=== PATIENT | male | born 1955 | race Caucasian/White ===

== ENCOUNTER 2016-04-10 17:34 | Emergency (ER) | payer OTHER ==
[~2016-04-10] VITALS: Ht 170.2 cm; Wt 70.0 kg
[~2016-04-10 17:34] MED LIST: CIPR500T4 PO; CLON.1 PO; CYCL5TAB PO; FLAG500T PO; LISI-360 PO; LORTA5 PO; NORV10TA PO; POTA20IN3 PO
[2016-04-10 17:45] VITALS: BP 175/104; PULSE 112; RESP 20; TEMP 98.7; O2SAT 96
[2016-04-10] MEDS ORDERED: LISI10TA3 PO (17:51)
[2016-04-10 18:31] LABS: AUTOMATED NEUTROPHIL # 3.2 TH/MM3 (1.8-7.7); BASOPHIL # 0.1 TH/MM3 (0-0.2); EOSINOPHIL # 0.1 TH/MM3 (0-0.4); EOSINOPHIL % 1.9 % (0.0-4.0); HEMATOCRIT 44.2 % (39.0-51.0); HEMO FLAGS DIFF FINAL; LYMPH % 37.6 % (9.0-44.0); LYMPHOCYTE # 2.5 TH/MM3 (1.0-4.8); MEAN CORPUSCULAR HGB CONC 34.8 % (32.0-36.0); MONO % 10.9 % (0.0-8.0); NEUT % 48.6 % (16.0-70.0); PLATELET COUNT 203 TH/MM3 (150-450); RED CELL DISTRIBUTION WIDTH 14.3 % (11.6-17.2); WHITE BLOOD COUNT 6.5 TH/MM3 (4.0-11.0)
[2016-04-10 18:45] LABS: AMPHETAMINE, URINE NEG (NEG); BARBITURATES, URINE POS (NEG); COCAINE, URINE NEG (NEG)
[2016-04-10 19:00] LABS: ANION GAP 10 MEQ/L (5-15); BICARBONATE 23.5 MEQ/L (21.0-32.0); BLOOD UREA NITROGEN 13 MG/DL (7-18); CHLORIDE 111 MEQ/L (98-107); GLOMERULAR FILTRATION RATE 121 ML/MIN (>89); POTASSIUM 3.3 MEQ/L (3.5-5.1); SODIUM (NA) 144 MEQ/L (136-145)
[2016-04-10 19:04] LABS: ALKALINE PHOSPHATASE 132 U/L (45-117); ALT (GPT) 35 U/L (12-78); AST (GOT) 50 U/L (15-37); TOTAL BILIRUBIN ADULT 0.3 MG/DL (0.2-1.0)
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
[2016-04-10 19:41] VITALS: BP 179/110; PULSE 82; RESP 20; O2SAT 96
[2016-04-10] MEDS ORDERED: cloNIDine HCL 0.2 MG TAB PO ONE (20:00)
[2016-04-10] MEDS ORDERED: LORazepam 2 MG/ML VIAL IV PUSH PRN ×4 (20:15)
[2016-04-10] MEDS ORDERED: LORazepam 2 MG TAB PO PRN (20:15)
[2016-04-10] MEDS ORDERED: LORazepam 1 MG TAB PO PRN (20:15)
[2016-04-10] MEDS ORDERED: FLUMAZENIL 0.5 MG/5 ML VIAL IV PUSH PRN (20:15)
[2016-04-10 22:46] VITALS: BP 143/86; PULSE 80; RESP 18; O2SAT 97
[2016-04-11 02:36] VITALS: BP 192/94; PULSE 83; RESP 18
[2016-04-11 06:25] VITALS: BP 212/108; PULSE 101; RESP 18; O2SAT 97
[2016-04-11] MEDS ORDERED: LISINOPRIL 10 MG TAB PO ONE (06:30)
[2016-04-11] MEDS ORDERED: cloNIDine HCL 0.1 MG TAB PO ONE (06:30)
[2016-04-11 10:37] VITALS: BP 196/102; PULSE 87; RESP 18; O2SAT 98
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
== END 2016-04-11 12:26 | disposition home or self-care (01) ==
LOC: NEPE 17:34 → NEPJ 04-11 12:26
DX: F10.24 Alcohol dependence with alcohol-induced mood disorder (principal); E87.6 Hypokalemia; R00.0 Tachycardia, unspecified; I10 Essential (primary) hypertension; F17.210 Nicotine dependence, cigarettes, uncomplicated
CPT/HCPCS: 80053; 80307; 80320; 85025; 96374; 99284; J2060

== ENCOUNTER 2016-11-20 05:51 | Inpatient (IN) | payer SELFPAY ==
[2016-11-20] VITALS (8 sets, daily range): BP systolic 146–175; BP diastolic 67–98; PULSE 80–90; RESP 16–22; TEMP 95.5–97.2; O2SAT 96–100
[~2016-11-20] VITALS: Ht 177.8 cm; Wt 60.0 kg
[~2016-11-20 05:51] MED LIST changes: -CIPR500T4 PO; -CLON.1 PO; -CYCL5TAB PO; -FLAG500T PO; -LISI-360 PO; +LISI10TA3 PO; -LORTA5 PO; -NORV10TA PO; -POTA20IN3 PO
[2016-11-20] MEDS ORDERED: SODIUM CHLORIDE 0.9% FLUSH 10 ML FLUSH IVF PRN (06:00)
[2016-11-20 06:16] LABS: AUTOMATED NEUTROPHIL # 11.8 TH/MM3 (1.8-7.7); BASOPHIL % 0.1 % (0.0-2.0); EOSINOPHIL % 0.1 % (0.0-4.0); HEMATOCRIT 46.8 % (39.0-51.0); LYMPH % 4.1 % (9.0-44.0); LYMPHOCYTE # 0.6 TH/MM3 (1.0-4.8); MEAN CELL VOLUME 88.7 FL (80.0-100.0); MEAN CORPUSCULAR HEMOGLOBIN 29.3 PG (27.0-34.0); MONO % 8.8 % (0.0-8.0); NEUT % 86.9 % (16.0-70.0); PLATELET COUNT 155 TH/MM3 (150-450); RED BLOOD COUNT 5.27 MIL/MM3 (4.50-5.90); RED CELL DISTRIBUTION WIDTH 17.2 % (11.6-17.2); WHITE BLOOD COUNT 13.6 TH/MM3 (4.0-11.0)
[2016-11-20 06:26] LABS: HEMO FLAGS AUTO DIFF
[2016-11-20 06:31] LABS: ALT (GPT) 23 U/L (12-78); ANION GAP 14 MEQ/L (5-15); AST (GOT) 25 U/L (15-37); BICARBONATE 21.6 MEQ/L (21.0-32.0); BLOOD UREA NITROGEN 70 MG/DL (7-18); CHLORIDE 99 MEQ/L (98-107); GLOMERULAR FILTRATION RATE 7 ML/MIN (>89); SODIUM (NA) 135 MEQ/L (136-145)
[2016-11-20 06:35] LABS: ALKALINE PHOSPHATASE 67 U/L (45-117); CREATINE KINASE 330 U/L (39-308)
--- NOTE | 2016-11-20 06:35 | RADRPT ---
EXAM DATE/TIME: 11/20/2016 06:08 [facility] COMPARISON: CHEST SINGLE AP, May 19, 2013, 4:52. INDICATIONS : Chest pain x 3 hours. MEDICAL HISTORY : Hypertension. SURGICAL HISTORY : Colostomy ENCOUNTER: Initial ACUITY: 1 day PAIN SCORE: 7/10 LOCATION: Bilateral chest FINDINGS: A single view of the chest demonstrates the lungs to be symmetrically aerated without evidence of mas s, infiltrate or effusion. The cardiomediastinal contours are unremarkable. Osseous structures are intact. CONCLUSION: No acute cardiopulmonary process. Ceasar Benton MD on November 20, 2016 at 6:33 Board Certified Radiologist. This report was verified electronically.
[2016-11-20 06:47] LABS: CKMB 5.1 NG/ML (0.5-3.6)
[2016-11-20] MEDS ORDERED: SODIUM CHLOR 0.9% 1000 ML INJ 1,000 ML IV ONE (07:15)
--- NOTE | 2016-11-20 07:40 | PD ---
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 Patient states this happened to him before and was rhabdomyolysis before. He states symptoms have been ongoing for a week. Denies any fever denies any shortness of breath. He does endorse mild chest pain. He also states she's been having very little urine output. [facility] Past Medical History Cardiovascular Problems: Yes Diminished Hearing: No Hepatitis: Yes (HEP C) Hypertension: Yes Past Surgical History Abdominal Surgery: Yes (ostomy) Social History Alcohol Use: Yes Tobacco Use: Yes (1.5 ppd) Substance Use: Yes (CHRONIC ALCOHOL ABUSE) Allergies-Medications (Allergen,Severity, Reaction): Coded Allergies: metoprolol (Unverified Allergy, Intermediate, CHEST PRESSURE, 11/20/16) Reported Meds & Prescriptions Reported Meds & Active Scripts Active Reported Lisinopril 10 Mg Tab 10 Mg PO DAILY Review of Systems Except as stated in HPI: all other systems reviewed are Neg Physical Exam Narrative GENERAL: Well-developed well-nourished, thin, appears dehydrated. SKIN: Focused skin assessment warm/dry. Decreased skin turgor. Dry mucous membranes. HEAD: Atraumatic. Normocephalic. EYES: Pupils equal and round. No scleral icterus. No injection or drainage. ENT: No nasal bleeding or discharge. Mucous membranes pink and dry. NECK: Trachea midline. No JVD. CARDIOVASCULAR: Regular rate and rhythm. No murmur appreciated. RESPIRATORY: No accessory muscle use. Clear to auscultation. Breath sounds equal bilaterally. GASTROINTESTINAL: Abdomen soft, non-tender, nondistended. Hepatic and splenic margins not palpable. MUSCULOSKELETAL: No obvious deformities. No clubbing. No cyanosis. No edema. NEUROLOGICAL: Awake and alert. No obvious cranial nerve deficits. Motor grossly within normal limits. Normal speech. PSYCHIATRIC: Appropriate mood and affect; insight and judgment normal. Data Data Last Documented VS Vital Signs Date Time Temp Pulse Resp B/P (MAP) Pulse Ox O2 Delivery O2 Flow Rate FiO2 11/20/16 08:09 80 16 175/84 (114) 98 Room Air 11/20/16 05:53 97.2 Orders Orders Electrocardiogram (11/20/16 05:55) Ckmb (Isoenzyme) Profile (11/20/16 05:55) Complete Blood Count With Diff (11/20/16 05:55) Comprehensive Metabolic Panel (11/20/16 05:55) Troponin I (11/20/16 05:55) Chest, Single Ap (11/20/16 05:55) Ecg Monitoring (11/20/16 05:55) Iv Access Insert/Monitor (11/20/16 05:55) Oximetry (11/20/16 05:55) Oxygen Administration (11/20/16 05:55) Sodium Chloride 0.9% Flush (Ns Flush) (11/20/16 06:00) CKMB (11/20/16 06:00) CKMB% (11/20/16 06:00) Sodium Chlor 0.9% 1000 Ml Inj (Ns 1000 M (11/20/16 07:15) Diet Renal (11/20/16 Breakfast) Sodium Chlor 0.9% 1000 Ml Inj (Ns 1000 M (11/20/16 08:00) Urinalysis - C+S If Indicated (11/20/16 07:50) Intake + Output 06,14,22 (11/20/16 07:50) Basic Metabolic Panel (Bmp) (11/21/16 06:00) Complete Blood Count With Diff (11/21/16 06:00) Vital Signs (Adult) ROBERT.Q4H (11/20/16 07:50) Sodium, Random Urine (11/20/16 07:50) Consult Nephrology (11/20/16 ) (Hub Use Only)Inp Phy Cons/Ref (11/20/16 08:29) Admit Order (Ed Use Only) (11/20/16 ) Labs Laboratory Tests Test 11/20/16 06:00 White Blood Count 13.6 TH/MM3 Red Blood Count 5.27 MIL/MM3 Hemoglobin 15.4 GM/DL Hematocrit 46.8 % Mean Corpuscular Volume 88.7 FL Mean Corpuscular Hemoglobin 29.3 PG Mean Corpuscular Hemoglobin Concent 33.0 % Red Cell Distribution Width 17.2 % Platelet Count 155 TH/MM3 Mean Platelet Volume 8.2 FL Neutrophils (%) (Auto) 86.9 % Lymphocytes (%) (Auto) 4.1 % Monocytes (%) (Auto) 8.8 % Eosinophils (%) (Auto) 0.1 % Basophils (%) (Auto) 0.1 % Neutrophils # (Auto) 11.8 TH/MM3 Lymphocytes # (Auto) 0.6 TH/MM3 Monocytes # (Auto) 1.2 TH/MM3 Eosinophils # (Auto) 0.0 TH/MM3 Basophils # (Auto) 0.0 TH/MM3 CBC Comment AUTO DIFF Differential Total Cells Counted 100 Neutrophils % (Manual) 70 % Band Neutrophils % 20 % Lymphocytes % 3 % Monocytes % 7 % Neutrophils # (Manual) 12.2 TH/MM3 Differential Comment FINAL DIFF MANUAL Platelet Estimate NORMAL Platelet Morphology Comment NORMAL Blood Urea Nitrogen 70 MG/DL Creatinine 8.11 MG/DL Random Glucose 131 MG/DL Total Protein 7.7 GM/DL Albumin 3.5 GM/DL Calcium Level 7.6 MG/DL Alkaline Phosphatase 67 U/L Aspartate Amino Transf (AST/SGOT) 25 U/L Alanine Aminotransferase (ALT/SGPT) 23 U/L Total Bilirubin 2.0 MG/DL Sodium Level 135 MEQ/L Potassium Level 4.0 MEQ/L Chloride Level 99 MEQ/L Carbon Dioxide Level 21.6 MEQ/L Anion Gap 14 MEQ/L Estimat Glomerular Filtration Rate 7 ML/MIN Total Creatine Kinase 330 U/L Creatine Kinase MB 5.1 NG/ML Creatine Kinase MB % 1.5 % Troponin I 0.05 NG/ML [facility] Medical Decision Making Medical Screen Exam Complete: Yes Emergency Medical Condition: Yes Differential Diagnosis Acute kidney injury, electrolyte abnormality, rhabdomyolysis. Narrative Course Patient roomed in the emergency department, appears significantly dehydrated. 2 L normal saline were ordered for him. Patient's labs do show mild elevation of CPK but a significant elevation in creatinine to 8.0. Patient's EKG does have some ST segment depression in V4 through V6. Troponin is 0.05. Chest pain is fairly atypical. Potassium is 4. Consideration was given for the possibility the patient has been suffering from rhabdomyolysis all week now he has kidney failure from it. The patient was discussed with Dr. Calvo for admission is agreeable. Diagnosis Primary Impression: Acute kidney failure Admitting Information Admitting Physician Requests: Admit Condition: Stable Nilay Walter MD Nov 20, 2016 07:40
[2016-11-20 07:50] LABS: BANDS 20 % (0-6); NEUTROPHIL # MANUAL DIFF 12.2 TH/MM3 (1.8-7.7); PLATELET ESTIMATE SMEAR NORMAL (NORMAL); PLATELET MORPHOLOGY NORMAL (NORMAL); POLYS (SEG NEUTROPHILS) 70 % (16-70); SCAN/DIFF FINAL DIFF MANUAL; WBC DIFF SAMPLE 100
--- NOTE | 2016-11-20 09:05 | EKG ---
Date Performed: 11/20/2016 Time Performed: 06:23:01 PTAGE: 61 years EKG: Sinus rhythm WITH OCCASIONAL SUPRAVENTRICULAR PREMATURE COMPLEXES LEFT VENTRICULAR HYPERTROPHY AND ST-T CHANGE AB NORMAL ECG NO PREVIOUS TRACING DOCTOR: Karsten Ardon Interpretating Date/Time 11/20/2016 09:04:04
[2016-11-20] MEDS: SODIUM CHLOR 0.9% 1000 ML INJ 1,000 ML IV SCH ×3 (09:29→21:13)
--- NOTE | 2016-11-20 10:05 | HHI.HP ---
HPI Service [facility] Hospitalists Primary Care Physician No Primary Care Physician Admission Diagnosis Acute Kidney Failure Diagnoses: Chief Complaint: Nausea vomiting Severe abdominal pain Bilateral lower extremity cramping and pain Decreased urinary output Dizziness and lightheadedness Travel History International Travel<30 Days: No Contact w/Intl Traveler <30 Da: No Traveled to Known Affected Are: No Sepsis Criteria SIRS Criteria (2 or more): WBC > 73656, < 4000 or > 10% bands History of Present Illness Written by Shanon Barrett PA-C acting as scribe for Dr. Calvo on 11/20/16 at 09:55. This is a 61-year-old male with a past medical history significant for hypertension, hep C untreated, hemochromatosis, history of perforated colon status post colostomy placement, history of previous rhabdomyolysis with suspected kidney failure, recent admission for symptomatic gallstones 3-6 months ago, tobaccoism and history of snorting crystal meth who presents to [facility] ED with complaints of three-day history of decreased urinary output, bilateral lower extremity muscle spasms, nausea, poor oral intake, lightheadedness and dizziness. 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 Patient denies any complaints of dysuria but states he has had a slow stream and decreased urinary output urinating small amounts only once per day. States he's not been eating well for the past 3-4 days. He endorses an episode of vomiting this morning. He reports diffuse abdominal pain some of which is chronic around the right upper quadrant with severe pain in the left lower quadrant around the stoma for the past 2 days. Patient denies any fever at home. Patient denies any diarrhea in the colostomy bag but states that for the past 6-8 months he's had intermittent episodes of passing pink/reddish tissue rectally which has become daily for the past 3 days the last episode being this morning. Additionally patient states that he was recently treated for gallstones and was told he needed a cholecystectomy but has not been able to follow-up to to financial issues/lack of insurance. Patient denies any recent colonoscopy. Patient states that his previous perforation was due to "parasites ". Additionally, patient states that whenever he drinks water he feels like his belly fills up with fluid. Patient admits to inhaling crystal meth several times per year and states his last use was a few weeks ago. Currently patient states he feels "terrible" and is complaining of severe abdominal pain as well as muscle spasms and pain. In the ED, patient is slightly elevated white count of 13.6. He is afebrile. Chemistry panel is most remarkable for an elevated creatinine level 8.11. He is also noted to have mildly elevated CK of 330 and CK-MB of 5.1. Initial troponin 0.05. There has not been any imaging of the abdomen. Chest x-ray shows no acute cardiopulmonary process. Patient reports his only home medication is lisinopril 10 mg which he takes every day including this morning. Patient is refusing Canela catheter placement at this time. Review of Systems Except as stated in HPI: all other systems reviewed are Neg Past Family Social History Past Medical History Hypertension Hep C untreated Hemochromatosis History of pneumoperitoneum, sigmoid resection, diverticulitis with perforated viscus status post colostomy placement 2013 History of previous rhabdomyolysis with suspected kidney failure 5 yrs ago Recent admission for symptomatic gallstones 3-6 months ago Hypospadias with urethral stricture Tobaccoism Polysubstance abuse Past Surgical History Status post sigmoid resection with colostomy ERCP for symptomatic gallstones 3-6 months ago at [facility] Reported Medications Lisinopril 10 Mg Tab 10 Mg PO DAILY Allergies: Coded Allergies: metoprolol (Unverified Allergy, Intermediate, CHEST PRESSURE, 11/20/16) Active Ordered Medications Current Medications Medications (Trade) Dose Ordered Sig/Ercia Route Start Time Stop Time Status Last Admin (NS Flush) 2 ml UNSCH PRN IVF 11/20/16 06:00 Sodium Chloride 1,000 ml @ 125 mls/hr Q8H IV 11/20/16 08:00 11/20/16 09:29 Family History Mother, 3 months ago of lung cancer Father, 20 years ago, cancer Social History Patient reports tobacco use of "at least" of 1 1/2 ppd. Patient ports alcohol consumption every 3-4 days. His last alcoholic beverages 3-4 days ago. However review of the previous medical record reveals a long history of alcohol abuse. Patient reports substance abuse of crystal meth which he inhales several times per year, his last use was a few weeks ago. Patient is and lives with his . 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 Physical Exam Vital Signs Vital Signs Date Time Temp Pulse Resp B/P (MAP) Pulse Ox O2 Delivery O2 Flow Rate FiO2 11/20/16 08:09 80 16 175/84 (114) 98 Room Air 11/20/16 06:02 96 Room Air 11/20/16 06:02 96 Room Air 11/20/16 05:53 97.2 82 16 154/90 (111) 100 Physical Exam GENERAL: This is a well-nourished, well-developed patient, in no apparent distress. Awake and alert. is at the bedside. SKIN: Warm and dry. Multiple superficial abrasions noted on both hands. HEAD: Atraumatic. Normocephalic. No temporal or scalp tenderness. EYES: Pupils equal round and reactive. Extraocular motions intact. Bilateral sclera mildly icteric. No injection or drainage. ENT: Nose without bleeding, purulent drainage. Poor dentition. Throat without erythema, tonsillar hypertrophy or exudate. Dry mucous membranes. Airway patent. NECK: Trachea midline. No lymphadenopathy. Supple, nontender, no meningeal signs. CARDIOVASCULAR: Regular rate and rhythm without murmurs, gallops, or rubs. RESPIRATORY: Clear to auscultation. Breath sounds equal bilaterally. No wheezes , rales, or rhonchi. GASTROINTESTINAL: Abdomen soft, nondistended. (+) Diffuse tenderness to palpation worse in the left lower quadrant. Colostomy noted in the left lower quadrant. No hepato-splenomegaly, or palpable masses. No guarding. MUSCULOSKELETAL: Extremities without clubbing, cyanosis, or edema. No joint tenderness, effusion, or edema noted. No calf tenderness. NEUROLOGICAL: Awake and alert. Able to move all extremities spontaneously. Normal speech. Laboratory Laboratory Tests Test 11/20/16 06:00 White Blood Count 13.6 Red Blood Count 5.27 Hemoglobin 15.4 Hematocrit 46.8 Mean Corpuscular Volume 88.7 Mean Corpuscular Hemoglobin 29.3 Mean Corpuscular Hemoglobin Concent 33.0 Red Cell Distribution Width 17.2 Platelet Count 155 Mean Platelet Volume 8.2 Neutrophils (%) (Auto) 86.9 Lymphocytes (%) (Auto) 4.1 Monocytes (%) (Auto) 8.8 Eosinophils (%) (Auto) 0.1 Basophils (%) (Auto) 0.1 Neutrophils # (Auto) 11.8 Lymphocytes # (Auto) 0.6 Monocytes # (Auto) 1.2 Eosinophils # (Auto) 0.0 Basophils # (Auto) 0.0 CBC Comment AUTO DIFF Differential Total Cells Counted 100 Neutrophils % (Manual) 70 Band Neutrophils % 20 Lymphocytes % 3 Monocytes % 7 Neutrophils # (Manual) 12.2 Differential Comment FINAL DIFF MANUAL Platelet Estimate NORMAL Platelet Morphology Comment NORMAL Blood Urea Nitrogen 70 Creatinine 8.11 Random Glucose 131 Total Protein 7.7 Albumin 3.5 Calcium Level 7.6 Alkaline Phosphatase 67 Aspartate Amino Transf (AST/SGOT) 25 Alanine Aminotransferase (ALT/SGPT) 23 Total Bilirubin 2.0 Sodium Level 135 Potassium Level 4.0 Chloride Level 99 Carbon Dioxide Level 21.6 Anion Gap 14 Estimat Glomerular Filtration Rate 7 Total Creatine Kinase 330 Creatine Kinase MB 5.1 Creatine Kinase MB % 1.5 Troponin I 0.05 Result Diagram: 11/20/16 0600 11/20/16 0600 Imaging Last Impressions Chest X-Ray 11/20/16 0555 Signed Impressions: Service Date/Time: Sunday, November 20, 2016 06:08 - CONCLUSION: No acute cardiopulmonary process. MD Reynaldo Teixeira VTE Risk Assessment Reynaldo VTE Risk Assessment: Mod/High Risk (score >= 2) VTE Pharm Contraindication: High risk for bleeding Caprini Risk Assessment Model Point Value = 1 Point Value = 2 Point Value = 3 Point Value = 5 Age 41-60 Minor surgery BMI > 25 kg/m2 Swollen legs Varicose veins or History of unexplained or recurrent spontaneous Oral contraceptives or hormone replacement Sepsis (< 1 month) Serious lung disease, including pneumonia (< 1 month) Abnormal pulmonary function Acute myocardial infarction Congestive heart failure (< 1 month) History of inflammatory bowel disease Medical patient at bed rest Age 61-74 Arthroscopic surgery Major open surgery (> 45 min) Laparoscopic surgery (> 45 min) Malignancy Confined to bed (> 72 hours) Immobilizing plaster cast Central venous access Age >= 75 History of VTE Family history of VTE Factor V Leiden Prothrombin [id number] Lupus anticoagulant Anticardiolipin antibodies Elevated serum homocysteine Heparin-induced thrombocytopenia Other congenital or acquired thrombophilia Stroke (< 1 month) Elective arthroplasty Hip, pelvis, or leg fracture Acute spinal cord injury (< 1 month) Prophylaxis Regimen Total Risk Factor Score Risk Level Prophylaxis Regimen 0-1 Low Early ambulation 2 Moderate Order ONE of the following: *Sequential Compression Device (SCD) *Heparin 5000 units SQ BID 3-4 Higher Order ONE of the following medications: *Heparin 5000 units SQ TID *Enoxaparin/Lovenox 40 mg SQ daily (WT < 150 kg, CrCl > 30 mL/min) *Enoxaparin/Lovenox 30 mg SQ daily (WT < 150 kg, CrCl > 10-29 mL/min) *Enoxaparin/Lovenox 30 mg SQ BID (WT < 150 kg, CrCl > 30 mL/min) AND/OR *Sequential Compression Device (SCD) 5 or more Highest Order ONE of the following medications: *Heparin 5000 units SQ TID (Preferred with Epidurals) *Enoxaparin/Lovenox 40 mg SQ daily (WT < 150 kg, CrCl > 30 mL/min) *Enoxaparin/Lovenox 30 mg SQ daily (WT < 150 kg, CrCl > 10-29 mL/min) *Enoxaparin/Lovenox 30 mg SQ BID (WT < 150 kg, CrCl > 30 mL/min) AND *Sequential Compression Device (SCD) Assessment and Plan Assessment and Plan 61-year-old male with a past medical history significant for hypertension, hep C untreated, hemochromatosis, history of perforated colon status post colostomy placement, history of previous rhabdomyolysis with suspected kidney failure, recent admission for symptomatic gallstones 3-4 months ago, tobaccoism and history of snorting crystal meth who presents to [facility] ED with complaints of three-day history of decreased urinary output, bilateral lower extremity muscle spasms, nausea, poor oral intake, lightheadedness and dizziness. Acute renal failure - Secondary to dehydration and continued ACEI use - creatinine 8.11 - Nephrology consulted - Aggressive IV fluid hydration - avoid nephrotoxic agents - Hold patient's home lisinopril - Patient is refusing Canela placement. Monitor I's and O's. - Renal ultrasound ordered - Obtain UA with reflex culture - Urine sodium - Renal diet - Monitor creatinine closely ?Rhabdomyolysis - Secondary to severe dehydration - Mildly elevated CK. Continue to monitor. - Aggressive IV fluid hydration Leukocytosis - Likely stress/reactive - Chest x-ray personally reviewed and is unremarkable - UA ordered - Patient is afebrile. - Monitor CBC Severe abdominal pain History of perforation status post colostomy Questionable GI bleed - H&H stable. Continue to monitor - Hold off on any anticoagulation at this time - Consult GI - Pain management - IV Zofran as needed Hypertension - hold ACEI for now - Monitor BP and initiate treatment as indicated Hep C, untreated - Standard precautions - LFTs within normal limits - GI consulted as stated above Tobaccoism Polysubstance abuse History of respiratory failure requiring intubation - Patient admitted in April of this year under [facility] act for alcohol abuse /intoxication - Discussed cessation - Monitor respiratory status DVT prophylaxis - Hold chemoprophylaxis at this time due to concern for possible GI bleed - Bilateral SCD/CARL hose This note was transcribed by scribe [Ms.Shannon Barrett]. I, Dr. Anette Calvo personally performed the history, physical exam, and medical decision making; and confirmed the accuracy of the information in the transcribed note. Authenticated by Dr. Tali Calvo on 11/20/16 at 10:42. Discussed Condition With ED physician, patient and Physician Certification 2 Midnight Certification Type: Admission for Inpatient Services Order for Inpatient Services The services are ordered in accordance with Medicare regulations or non- Medicare payer requirements, as applicable. In the case of services not specified as inpatient-only, they are appropriately provided as inpatient services in accordance with the 2-midnight benchmark. Estimated LOS (days): 2 2 days is the estimated time the patient will need to remain in the hospital, assuming treatment plan goals are met and no additional complications. Post-Hospital Plan: Not yet determined Shanon Barrett Nov 20, 2016 10:05 Anette Calvo MD Nov 20, 2016 10:43
[2016-11-20] MEDS ORDERED: ONDANSETRON HCL 4 MG/2 ML VIAL IV PUSH PRN (10:15)
[2016-11-20] MEDS ORDERED: ACETAMINOPHEN 325 MG TAB PO PRN (10:15)
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
--- NOTE | 2016-11-20 11:44 | RADRPT ---
EXAM DATE/TIME: 11/20/2016 10:47 [place] COMPARISON: No previous studies available for comparison. INDICATIONS : Increased BUN and creatnine. MEDICAL HISTORY : Hepatitis C. Hypertension. ETOH abuse. SURGICAL HISTORY : ENCOUNTER: Initial ACUITY: 1 day PAIN SCORE: 7/10 LOCATION: Bilateral flank MEASUREMENTS: RIGHT KIDNEY: 10.8 x 4.8 x 5.0 cm LEFT KIDNEY: 10.8 x 5.6 x 5.8 cm FINDINGS: The kidneys appear echogenic. No focal mass or hydronephrosis is seen. The bladder is unremarkable. CONCLUSION: Echogenic kidneys consistent with medical renal disease. The kidneys are normal in size without hydro nephrosis. Jv Moreno MD on November 20, 2016 at 11:41 Board Certified Radiologist. This report was verified electronically.
--- NOTE | 2016-11-20 16:30 | MB ---
cc: LISBETH DUMONT M.D., MOHAMMADREZA MD DATE OF CONSULTATION November 20, [address] Calvo. REASON FOR CONSULTATION Rectal bleeding and bleeding through the colostomy. HISTORY OF PRESENT ILLNESS Mr. 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 He also mentions bleeding through his rectum as well as through his colostomy and this has prompted GI consultation. He says for 2 days he has been having some dark-colored material with some red blood coming out of his rectum. He says this alarmed him the most. He also has been having some red blood through his colostomy which he says is an off and on thing for him. He had a colostomy done about 3.5-4 years ago he states and he says this was done for parasites. He said he was told that the colostomy will be reversed but it was never done due to financial issues. Currently, he is having no active bleeding. REVIEW OF SYSTEMS Unremarkable. PAST MEDICAL HISTORY Hypertension, hepatitis C, hemochromatosis, sigmoid resection for diverticulitis and colostomy in 2013. Previous history of rhabdomyolysis. History of gallstones. Tobaccoism, polysubstance abuse. PAST SURGICAL HISTORY Sigmoid resection with colostomy. ERCP for gallstone removal about 6 months ago. CURRENT MEDICATIONS 1. Lisinopril. ALLERGIES METOPROLOL. FAMILY HISTORY Lung cancer. SOCIAL HISTORY The patient is a smoker, also drinks alcohol, polysubstance abuser reported as well. PHYSICAL EXAMINATION GENERAL: Physical examination reveals a well-nourished man in no apparent distress. VITAL SIGNS: Stable. HEAD AND NECK EXAMINATION: Icteric sclerae. CHEST: Bilateral air entry with rales. ABDOMEN: Abdomen is soft, tenderness to palpation, has a colostomy in the left lower quadrant. 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 LABORATORY DATA Reveal white cell count of 13.6, hemoglobin is 15, creatinine 8.1. Total bilirubin 2, AST 25, ALT 23. IMPRESSION Rectal bleeding as well as bleeding through the colostomy. RECOMMENDATIONS Sigmoidoscopy, colonoscopy planned for Tuesday. Obviously, kidney functions need to improve before the bowel prep. Hydrocortisone enemas would help with the rectal bleeding. Continue to monitor labs. We will follow with you. Thank you for this referral. MD DARYA Thomason /2:15 PM /4:17 PM
[2016-11-20] MEDS ORDERED: hydrALAZINE HCL 25 MG TAB PO PRN (17:00)
[2016-11-20] MEDS: amLODIPine BESYLATE 5 MG TAB PO SCH (17:54)
[2016-11-20] MEDS: HYDROCORTISONE ENEMA 100 MG/60 ML BTL RECTAL SCH (21:00)
[2016-11-21 00:42] VITALS: BP 148/70; PULSE 91; RESP 18; TEMP 96.3; O2SAT 97
[2016-11-21] MEDS ORDERED: MORPHINE SULFATE 4 MG/ML INJ IV PUSH ONE ×2 (06:15→13:00)
[2016-11-21] MEDS: SODIUM CHLOR 0.9% 1000 ML INJ 1,000 ML IV SCH (06:17)
[2016-11-21 07:23] LABS: AUTOMATED NEUTROPHIL # 5.2 TH/MM3 (1.8-7.7); BASOPHIL % 0.4 % (0.0-2.0); EOSINOPHIL # 0.1 TH/MM3 (0-0.4); EOSINOPHIL % 1.1 % (0.0-4.0); HEMATOCRIT 39.4 % (39.0-51.0); HEMO FLAGS DIFF FINAL; LYMPH % 13.1 % (9.0-44.0); LYMPHOCYTE # 0.9 TH/MM3 (1.0-4.8); MEAN CELL VOLUME 88.4 FL (80.0-100.0); MEAN CORPUSCULAR HEMOGLOBIN 29.7 PG (27.0-34.0); MEAN CORPUSCULAR HGB CONC 33.6 % (32.0-36.0); MONO % 10.4 % (0.0-8.0); PLATELET COUNT 101 TH/MM3 (150-450); RED BLOOD COUNT 4.46 MIL/MM3 (4.50-5.90); WHITE BLOOD COUNT 6.9 TH/MM3 (4.0-11.0)
[2016-11-21 08:00] VITALS: BP 185/84; PULSE 66; RESP 16; TEMP 96.7; O2SAT 98
[2016-11-21 08:10] LABS: BICARBONATE 22.6 MEQ/L (21.0-32.0); POTASSIUM 3.8 MEQ/L (3.5-5.1)
[2016-11-21] MEDS: amLODIPine BESYLATE 5 MG TAB PO SCH (08:57)
[2016-11-21] MEDS ORDERED: INFLUENZA VIRUS VACCINE (QUADRIVALENT) 0.5 ML SYR IM ONE (10:00)
--- NOTE | 2016-11-21 10:43 | HHI.PR ---
Subjective Remarks in no acute distress. however complaining of abdominal pain. urine output is improving. d/w the RN. Objective Vitals Vital Signs Date Time Temp Pulse Resp B/P (MAP) Pulse Ox O2 Delivery O2 Flow Rate FiO2 11/21/16 08:00 96.7 66 16 185/84 (117) 98 11/21/16 03:33 20 11/21/16 00:42 96.3 91 18 148/70 (96) 97 11/20/16 19:44 96.5 84 22 149/67 (94) 96 11/20/16 16:00 95.9 81 18 162/80 (107) 99 11/20/16 13:00 95.5 90 19 152/81 (104) 99 11/20/16 12:46 79 18 146/79 (101) 97 11/20/16 10:55 86 18 154/98 (116) 99 Room Air I/O 11/20/16 11/20/16 11/20/16 11/21/16 11/21/16 11/21/16 07:00 15:00 23:00 07:00 15:00 23:00 Intake Total 1000 ml 240 ml Output Total 200 ml 775 ml Balance 1000 ml 40 ml -775 ml Intake Oral 240 ml IV Total 1000 ml Output Urine Total 200 ml 775 ml # Bowel Movements 0 Result Diagram: 11/21/16 0610 11/21/16 0610 Imaging Last Impressions Chest X-Ray 11/20/16 0555 Signed Impressions: Service Date/Time: Sunday, November 20, 2016 06:08 - CONCLUSION: No acute cardiopulmonary process. Ceasar Benton MD Renal Ultrasound 11/20/16 0000 Signed Impressions: Service Date/Time: Sunday, November 20, 2016 10:47 - CONCLUSION: Echogenic kidneys consistent with medical renal disease. The kidneys are normal in size without hydronephrosis. Jv Moreno MD Objective Remarks GENERAL: This is a well-nourished, well-developed patient, in no apparent distress. CARDIOVASCULAR: Regular rate and regular rhythm without murmurs, gallops, or rubs. RESPIRATORY: Clear to auscultation. Breath sounds equal bilaterally. No wheezes , rales, or rhonchi. GASTROINTESTINAL: Abdomen soft, with generalized tenderness, nondistended. Normal, active bowel sounds MUSCULOSKELETAL: Extremities without clubbing, cyanosis, or edema. NEURO: Alert & Oriented x4 to person, place, time, situation. Moves all ext x4 Medications and IVs Current Medications Sodium Chloride (NS Flush) 2 ml UNSCH PRN IVF FLUSH AFTER USING IV ACCESS; Start 11/20/16 at 06:00 Sodium Chloride 1,000 ml @ 999 mls/hr BOLUS ONCE IV Last administered on 11/20 07:41; Start 11/20/16 at 07:15; Stop 11/20/16 at 08:15; Status DC Sodium Chloride 1,000 ml @ 150 mls/hr Q6H40M IV Last administered on 06:17; Start 11/20/16 at 08:00; Stop 11/21/16 at 09:08; Status DC Ondansetron HCl (Zofran Inj) 4 mg Q8HR PRN IV PUSH NAUSEA Last administered on 11/20/16 10:54; Start 11/20/16 at 10:15 Acetaminophen (Tylenol) 650 mg Q6HR PRN PO PAIN 1-5 Last administered on 13:19; Start 11/20/16 at 10:15 Oxycodone HCl (Roxicodone) 5 mg Q6H PRN PO PAIN 6-10 Last administered on 01:11; Start 11/20/16 at 10:15 Influenza Virus Vaccine (Flu (Quadrivalent) Vaccine Inj) 0.5 ml ONCE ONCE IM ; Start 11/21/16 at 10:00; Stop 11/21/16 at 10:01; Status DC Hydrocortisone (Cortenema) 100 mg HS RECTAL ; Start 11/20/16 at 21:00 Amlodipine Besylate (Norvasc) 5 mg DAILY PO Last administered on 11/21/16 08: 57; Start 11/20/16 at 17:00 Hydralazine HCl (Apresoline) 25 mg Q8H PRN PO SBP > 180 DBP > 90; Start at 17:00 Morphine Sulfate (Morphine Inj) 2 mg ONCE ONCE IV PUSH Last administered on 06:16; Start 11/21/16 at 06:15; Stop 11/21/16 at 06:16; Status DC Sodium Chloride 1,000 ml @ 65 mls/hr [id number] IV ; Start 11/21/16 at 09:15 A/P Assessment and Plan A/P Acute kidney injury; improved with IV hydration. - Secondary to dehydration and continued ACEI use -nephrology consult appreciated. -kidney sonogram with medical renal disease and no hydronephrosis -continue with IV fluid and to monitor the renal function ?Rhabdomyolysis - Secondary to severe dehydration - Mildly elevated CK. Continue to monitor. - continue IV fluid hydration Leukocytosis-resolved - Likely stress/reactive - Patient is afebrile. - Monitor CBC Severe abdominal pain History of perforation status post colostomy Questionable GI bleed - H&H stable. Continue to monitor - Hold off on any anticoagulation at this time - GI evaluation appreciated and plan for colonoscopy on Tuesday. - Pain management - IV Zofran as needed Hypertension - hold ACEI for now -added norvasc- - Monitor BP and initiate treatment as indicated Hep C, untreated - Standard precautions - LFTs within normal limits - GI consulted as stated above Tobaccoism/ Polysubstance abuse; start on nicotine patch DVT prophylaxis - Hold chemoprophylaxis at this time due to concern for possible GI bleed - Bilateral SCD/CARL Anette Loco MD Nov 21, 2016 10:43
[2016-11-21] MEDS: REMOVE OLD PATCH T-DERMAL SCH (11:00)
[2016-11-21] MEDS: NICOTINE 21 MG/24 HR PATCH T-DERMAL SCH (11:12)
[2016-11-21] MEDS: HYDROCORTISONE ENEMA 100 MG/60 ML BTL RECTAL SCH (11:12)
[2016-11-21 12:00] VITALS: BP 163/81; PULSE 72; RESP 14; TEMP 97; O2SAT 97
--- NOTE | 2016-11-21 12:09 | HHI.NPPN ---
Subjective Interval History Renal function has improved. He has excellent urine output. Feels stronger. Review of Systems General Constitutional: Fatigue Objective Data Data Vital Signs Date Time Temp Pulse Resp B/P (MAP) Pulse Ox O2 Delivery O2 Flow Rate FiO2 11/21/16 08:00 96.7 66 16 185/84 (117) 98 11/21/16 03:33 20 11/21/16 00:42 96.3 91 18 148/70 (96) 97 11/20/16 19:44 96.5 84 22 149/67 (94) 96 11/20/16 16:00 95.9 81 18 162/80 (107) 99 11/20/16 13:00 95.5 90 19 152/81 (104) 99 11/20/16 12:46 79 18 146/79 (101) 97 -: 11/21/16 0610 11/21/16 0610 Physical Exam General Appearance: No Acute Distress, Comfortable Eyes Eye Exam: Pupils Equal, Pupils Reactive Throat Throat Exam: Oral Mucosa [place] & Moist Neck Neck Exam: Neck Supple Pulmonary Resp Exam: Rhonchi Cardiology CV Exam: Regular, Normal Sinus Rhythm Gastrointestinal/Abdomen GI Exam: Soft, Non-Tender GI Remarks ostomy in place. Extremeties Extremities Exam: No Edema Neurologic Neuro Exam: Alert, Awake, Oriented, Speech Clear, Moving All Extremities Assessment/Plan Problem List: (1) Acute kidney failure ICD Codes: N17.9 - Acute kidney failure, unspecified Status: Acute Plan: Renal function has improved with hydration. Reduce IVF, encourage oral intake, taper off fluids. CPK is only mildly elevated, may not have rhabdomyolysis. Renal US is unremarkable. Avoid nephrotoxic agents. (2) Tobacco abuse ICD Codes: Z72.0 - Tobacco use Plan: Cessation was advised. Plan I will sign off at this time. Thanks. Luke Figueroa MD Nov 21, 2016 12:09
--- NOTE | 2016-11-21 14:44 | HHI.GIFU ---
Subjective Remarks Lying in bed. Patient reports diffuse abdominal pain. (Sarita Del Rio) Objective Vitals I&O Vital Signs Date Time Temp Pulse Resp B/P (MAP) Pulse Ox O2 Delivery O2 Flow Rate FiO2 11/21/16 08:00 96.7 66 16 185/84 (117) 98 11/21/16 03:33 20 11/21/16 00:42 96.3 91 18 148/70 (96) 97 11/20/16 19:44 96.5 84 22 149/67 (94) 96 11/20/16 16:00 95.9 81 18 162/80 (107) 99 I/O 11/20/16 11/20/16 11/20/16 11/21/16 11/21/16 11/21/16 07:00 15:00 23:00 07:00 15:00 23:00 Intake Total 1000 ml 240 ml Output Total 200 ml 775 ml Balance 1000 ml 40 ml -775 ml Intake Oral 240 ml IV Total 1000 ml Output Urine Total 200 ml 775 ml # Bowel Movements 0 Laboratory Laboratory Tests Test 11/21/16 06:10 White Blood Count 6.9 Red Blood Count 4.46 Hemoglobin 13.3 Hematocrit 39.4 Mean Corpuscular Volume 88.4 Mean Corpuscular Hemoglobin 29.7 Mean Corpuscular Hemoglobin Concent 33.6 Red Cell Distribution Width 17.0 Platelet Count 101 Mean Platelet Volume 8.9 Neutrophils (%) (Auto) 75.0 Lymphocytes (%) (Auto) 13.1 Monocytes (%) (Auto) 10.4 Eosinophils (%) (Auto) 1.1 Basophils (%) (Auto) 0.4 Neutrophils # (Auto) 5.2 Lymphocytes # (Auto) 0.9 Monocytes # (Auto) 0.7 Eosinophils # (Auto) 0.1 Basophils # (Auto) 0.0 CBC Comment DIFF FINAL Differential Comment Blood Urea Nitrogen 63 Creatinine 1.77 Random Glucose 91 Calcium Level 7.9 Sodium Level 139 Potassium Level 3.8 Chloride Level 108 Carbon Dioxide Level 22.6 Anion Gap 8 Estimat Glomerular Filtration Rate 39 Total Creatine Kinase 92 Imaging Last Impressions Chest X-Ray 11/20/16 0555 Signed Impressions: Service Date/Time: Sunday, November 20, 2016 06:08 - CONCLUSION: No acute cardiopulmonary process. Ceasar Benton MD Renal Ultrasound 9/16/17 0000 Signed Impressions: Service Date/Time: Sunday, November 20, 2016 10:47 - CONCLUSION: Echogenic kidneys consistent with medical renal disease. The kidneys are normal in size without hydronephrosis. Jv Moreno MD Physical Exam HEENT: Normocephalic; atraumatic; no jaundice. NECK: Neck is supple CHEST: CTA CARDIAC: RRR with no murmur gallop or rubs. ABDOMEN: Soft, nondistended, diffuse abdominal TTP; bowel sounds are present. EXTREMITIES: No clubbing, cyanosis, or edema. SKIN: Normal; no rash; no jaundice. SCREENING TECHNICIAN: No focal deficits; alert and oriented x 3 (Sarita Del Rio) Assessment and Plan Plan ASSESSMENT: Rectal bleeding and bleeding through colostomy, HH stable. Having diffuse abdominal tenderness. Sigmoidoscopy, colonoscopy planned once kidney function improves for bowel prep. WBC 6.9. Afebrile. Acute kidney injury, per attending. Improving. Nephrology following who has noted improved renal function and has signed off on patient. Cr 11/20 8.11, 11/21 1.77. GFR 11/20 7, 11/21 39. PLAN: - Sigmoidoscopy, colonoscopy Tuesday - Obtain consents - Clear liquid diet Tuesday - NPO after MN Tuesday - Bowel prep Tuesday - Monitor HH, transfuse as necessary - Notify GI of active bleeding - Hydrocortisone enemas for rectal bleeding - Supportive care - Further recommendations to follow based on results of above. Patient seen and examined by Dr. Staley and myself and this note is written on his behalf. (Sarita Del Rio) Physician Comments Seen and examined with SUPERVISOR TELEPHONE INFORMATION> sigmoidoscopy through the rectum and colonoscopy planned for tomorrow. (Masood Staley MD) Sarita Del Rio Nov 21, 2016 14:44 Masood Staley MD Nov 21, 2016 15:08
[2016-11-21 16:00] VITALS: BP 159/79; PULSE 82; RESP 16; TEMP 95.7; O2SAT 95
[2016-11-21] MEDS ORDERED: PEG (High)/E-LYTE SOLN 4000 ML BTL PO ONE (16:00)
[2016-11-21] MEDS: HYDROmorphone HCL PF 1 MG/ML VIAL IV PRN ×3 (16:05→21:56)
[2016-11-21] MEDS ORDERED: DIATRIZOATE MEGLUM/DIATRIZOATE SOD 9 ML CUP PO ONE (16:11)
[2016-11-21 19:48] VITALS: BP 154/75; PULSE 53; RESP 20; TEMP 96.3; O2SAT 98
[2016-11-21] MEDS: SODIUM CHLOR 0.45% 1000 ML INJ 1,000 ML IV SCH (19:50)
--- NOTE | 2016-11-21 20:23 | RADRPT ---
EXAM DATE/TIME: 11/21/2016 20:02 [facility] COMPARISON: CT ABDOMEN & PELVIS W/O CONTRAST, May 18, 2013, 12:51. INDICATIONS : Evaluate obstruction to colostomy. ORAL CONTRAST: Prescribed oral contrast ingested. RADIATION DOSE: 9.96 CTDIvol (mGy) MEDICAL HISTORY : Cardiovascular disease. Hypertension. Hepatitis C.Substance abuse. SURGICAL HISTORY : Colostomy. ENCOUNTER: Initial ACUITY: 1 day PAIN SCALE: 7 LOCATION: Bilateral abdomen TECHNIQUE: Volumetric scanning of the abdomen and pelvis was performed. Using automated exposure control and ad justment of the mA and/or kV according to patient size, radiation dose was kept as low as reasonably achievable to obtain optimal diagnostic quality images. DICOM format image data is available electro nically for review and comparison. FINDINGS: Changes of sigmoid colon resection and left lower quadrant colostomy again noted. The segment of colo n within the ostomy has thick wall and there is some patchy wall thickening of the transverse colon a s well. No evidence of obstruction. There is no free fluid or free air. Noncontrast appearance of the solid organs within normal limits. There is atherosclerosis of the abdo jeremias aorta. No aneurysm. CONCLUSION: Patchy uncomplicated colitis noted, most likely infectious or inflammatory. This involves the ostomy segment and the transverse colon. No obstruction. Jv Larson MD on November 21, 2016 at 20:16 Board Certified Radiologist. This report was verified electronically.
[2016-11-22] VITALS: BP 175/76; PULSE 79; RESP 18; TEMP 97.2; O2SAT 98
[2016-11-22] MEDS: SODIUM CHLOR 0.45% 1000 ML INJ 1,000 ML IV SCH (00:39)
[2016-11-22] MEDS: HYDROmorphone HCL PF 1 MG/ML VIAL IV PRN ×3 (01:20→07:35)
[2016-11-22 06:30] LABS: BICARBONATE 27.8 MEQ/L (21.0-32.0); POTASSIUM 4.3 MEQ/L (3.5-5.1)
[2016-11-22] MEDS: REMOVE OLD PATCH T-DERMAL SCH (07:33)
[2016-11-22] MEDS: amLODIPine BESYLATE 5 MG TAB PO SCH (07:35)
[2016-11-22] MEDS: NICOTINE 21 MG/24 HR PATCH T-DERMAL SCH (07:35)
[2016-11-22 08:00] VITALS: BP 170/78; PULSE 81; RESP 16; TEMP 96.8; O2SAT 97
[2016-11-22] MEDS ORDERED: PEG (High)/E-LYTE SOLN 4000 ML BTL PO ONE (16:00)
--- NOTE | 2016-11-28 15:11 | HHI.DS ---
Discharge Summary Admission Date Nov 20, 2016 at 08:33 Discharge Date: Nov 22, 2016 Admitting Diagnosis Acute Kidney Failure (1) Acute kidney injury ICD Code: N17.9 - Acute kidney failure, unspecified Diagnosis: Principal Procedures none Brief History - From Admission Written by Shanon Barrett PA-C acting as scribe for Dr. Calvo on 11/20/16 at 09:55. This is a 61-year-old male with a past medical history significant for hypertension, hep C untreated, hemochromatosis, history of perforated colon status post colostomy placement, history of previous rhabdomyolysis with suspected kidney failure, recent admission for symptomatic gallstones 3-6 months ago, tobaccoism and history of snorting crystal meth who presents to [facility] ED with complaints of three-day history of decreased urinary output, bilateral lower extremity muscle spasms, nausea, poor oral intake, lightheadedness and dizziness. 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 Patient denies any complaints of dysuria but states he has had a slow stream and decreased urinary output urinating small amounts only once per day. States he's not been eating well for the past 3-4 days. He endorses an episode of vomiting this morning. He reports diffuse abdominal pain some of which is chronic around the right upper quadrant with severe pain in the left lower quadrant around the stoma for the past 2 days. Patient denies any fever at home. Patient denies any diarrhea in the colostomy bag but states that for the past 6-8 months he's had intermittent episodes of passing pink/reddish tissue rectally which has become daily for the past 3 days the last episode being this morning. Additionally patient states that he was recently treated for gallstones and was told he needed a cholecystectomy but has not been able to follow-up to to financial issues/lack of insurance. Patient denies any recent colonoscopy. Patient states that his previous perforation was due to "parasites ". Additionally, patient states that whenever he drinks water he feels like his belly fills up with fluid. Patient admits to inhaling crystal meth several times per year and states his last use was a few weeks ago. Currently patient states he feels "terrible" and is complaining of severe abdominal pain as well as muscle spasms and pain. In the ED, patient is slightly elevated white count of 13.6. He is afebrile. Chemistry panel is most remarkable for an elevated creatinine level 8.11. He is also noted to have mildly elevated CK of 330 and CK-MB of 5.1. Initial troponin 0.05. There has not been any imaging of the abdomen. Chest x-ray shows no acute cardiopulmonary process. Patient reports his only home medication is lisinopril 10 mg which he takes every day including this morning. Patient is refusing Canela catheter placement at this time. Imaging Last Impressions Abdomen/Pelvis CT 11/21/16 0000 Signed Impressions: Service Date/Time: Monday, November 21, 2016 20:02 - CONCLUSION: Patchy uncomplicated colitis noted, most likely infectious or inflammatory. This involves the ostomy segment and the transverse colon. No obstruction. Jv Larson MD Chest X-Ray 11/20/16 0555 Signed Impressions: Service Date/Time: Sunday, November 20, 2016 06:08 - CONCLUSION: No acute cardiopulmonary process. Ceasar Benton MD Renal Ultrasound 11/20/16 0000 Signed Impressions: Service Date/Time: Sunday, November 20, 2016 10:47 - CONCLUSION: Echogenic kidneys consistent with medical renal disease. The kidneys are normal in size without hydronephrosis. Jv Moreno MD PE at Discharge GENERAL: This is a well-nourished, well-developed patient, in no apparent distress. CARDIOVASCULAR: Regular rate and regular rhythm without murmurs, gallops, or rubs. RESPIRATORY: Clear to auscultation. Breath sounds equal bilaterally. No wheezes , rales, or rhonchi. GASTROINTESTINAL: Abdomen soft, with generalized tenderness, nondistended. Normal, active bowel sounds MUSCULOSKELETAL: Extremities without clubbing, cyanosis, or edema. NEURO: Alert & Oriented x4 to person, place, time, situation. Moves all ext x4 Hospital Course Acute kidney injury; improved with IV hydration. - Secondary to dehydration and continued ACEI use -nephrology consult appreciated. -kidney sonogram with medical renal disease and no hydronephrosis -continue with IV fluid and to monitor the renal function ?Rhabdomyolysis - Secondary to severe dehydration - Mildly elevated CK. Continue to monitor. - continue IV fluid hydration Leukocytosis-resolved - Likely stress/reactive - Patient is afebrile. - Monitor CBC Severe abdominal pain History of perforation status post colostomy Questionable GI bleed - H&H stable. Continue to monitor - Hold off on any anticoagulation at this time - GI evaluation appreciated and plan for colonoscopy on Tuesday. - Pain management - IV Zofran as needed Hypertension - hold ACEI for now -added norvasc- - Monitor BP and initiate treatment as indicated Hep C, untreated - Standard precautions - LFTs within normal limits - GI consulted as stated above Tobaccoism/ Polysubstance abuse; start on nicotine patch DVT prophylaxis - Hold chemoprophylaxis at this time due to concern for possible GI bleed - Bilateral SCD/CARL hose Pt Condition on Discharge: Fair Discharge Disposition: Discharge Home Discharge Time: <= 30 minutes (patient signed out against medical advice.) Anette Calvo MD Nov 28, 2016 15:11
== END 2016-11-22 10:10 | disposition left against medical advice (07) | DRG 683 ==
LOC: NEPE 05:51 → NEDA 08:33 → NEDH 10:38 → N07A 12:56
PROVIDERS: ADMIT Internal Medicine; ATTEND Internal Medicine
DX: N17.9 Acute kidney failure, unspecified (principal); M62.82 Rhabdomyolysis; K62.5 Hemorrhage of anus and rectum; E86.0 Dehydration; B19.20 Unspecified viral hepatitis C without hepatic coma; F17.210 Nicotine dependence, cigarettes, uncomplicated; I10 Essential (primary) hypertension; D72.829 Elevated white blood cell count, unspecified; R10.817 Generalized abdominal tenderness; Z93.3 Colostomy status; Z23 Encounter for immunization
CPT/HCPCS: 71010; 74176; 76775; 80048; 80053; 82550; 82552; 84484; 85007; 85025; 85027; 90686; 93005; 96360; J1170; J2270; J2405; J7030; Q2038; Q9963

== ENCOUNTER 2017-02-17 06:27 | Inpatient (IN) | payer SELFPAY ==
[2017-02-17] VITALS (9 sets, daily range): BP systolic 134–168; BP diastolic 79–100; PULSE 79–100; RESP 16–23; TEMP 98.2–98.4; O2SAT 95–99
[~2017-02-17] VITALS: Ht 170.2 cm; Wt 60.8 kg
--- NOTE | 2017-02-17 06:49 | PD ---
HPI Chief Complaint: Respiratory Distress Time Seen by Provider: 06:41 Travel History International Travel<30 days: No Contact w/Intl Traveler<30days: No Traveled to known affect area: No History of Present Illness HPI Patient is a 5-year-old male history of cigarette smoking and colostomy bag presents emergency department for evaluation of shortness of breath. Patient states that he usually wakes up with phlegm in the morning and usually can cough and clear it and not have a problem, he states this morning he tried to cough and clear it and it took him some time to do so and it scared him so he called 911. Does not have a history of CHF, does not have a history of chronic kidney disease though he has been hospitalized here before for acute kidney failure. Not on dialysis currently. Denies any fever denies any sputum production this morning, denies any leg swelling. PFSH Past Medical History Cardiovascular Problems: Yes (HTN) Diminished Hearing: No Hepatitis: Yes (HEP C) Hypertension: Yes Tetanus Vaccination: Unknown Influenza Vaccination: No Past Surgical History Abdominal Surgery: Yes (2013 left colostomy placed) Social History Alcohol Use: Yes Tobacco Use: Yes (1.5 ppd) Substance Use: Yes (Crystal Meth, lortab, percocet, ) Allergies-Medications (Allergen,Severity, Reaction): Coded Allergies: metoprolol (Unverified Allergy, Intermediate, CHEST PRESSURE, 11/20/16) Reported Meds & Prescriptions Reported Meds & Active Scripts Active Reported Lisinopril 10 Mg Tab 10 Mg PO DAILY Review of Systems Except as stated in HPI: all other systems reviewed are Neg Physical Exam Narrative GENERAL: Well-developed, thin bordering on emaciated, smells of cigarette smoke , tachypneic SKIN: Focused skin assessment warm/dry. HEAD: Atraumatic. Normocephalic. EYES: Pupils equal and round. No scleral icterus. No injection or drainage. ENT: No nasal bleeding or discharge. Mucous membranes pink and moist. NECK: Trachea midline. No JVD. CARDIOVASCULAR: Regular rate and rhythm. No murmur appreciated. RESPIRATORY: No accessory muscle use. Bibasilar rales fine.. Breath sounds equal bilaterally. Tachypneic, able to speak in full sentences however. GASTROINTESTINAL: Abdomen soft, non-tender, nondistended. Hepatic and splenic margins not palpable. MUSCULOSKELETAL: No obvious deformities. No clubbing. No cyanosis. Trace lower extremity edema NEUROLOGICAL: Awake and alert. No obvious cranial nerve deficits. Motor grossly within normal limits. Normal speech. PSYCHIATRIC: Appropriate mood and affect; insight and judgment normal. Data Data Last Documented VS Vital Signs Date Time Temp Pulse Resp B/P (MAP) Pulse Ox O2 Delivery O2 Flow Rate FiO2 02/17/17 06:42 97 Room Air 02/17/17 06:32 98.2 100 23 168/99 (122) Orders Orders Complete Blood Count With Diff (02/17/17 06:40) Basic Metabolic Panel (Bmp) (02/17/17 06:40) Iv Access Insert/Monitor (02/17/17 06:40) Ecg Monitoring (02/17/17 06:40) Oxygen Administration (02/17/17 06:40) Oximetry (02/17/17 06:40) Electrocardiogram (02/17/17 06:40) Chest, Single Ap (02/17/17 06:40) Hepatic Functional Panel (02/17/17 06:48) Troponin I (02/17/17 07:20) Labs Laboratory Tests Test 02/17/17 06:45 White Blood Count 5.2 TH/MM3 Red Blood Count 4.66 MIL/MM3 Hemoglobin 10.2 GM/DL Hematocrit 33.6 % Mean Corpuscular Volume 72.1 FL Mean Corpuscular Hemoglobin 21.9 PG Mean Corpuscular Hemoglobin Concent 30.4 % Red Cell Distribution Width 20.2 % Platelet Count 120 TH/MM3 Mean Platelet Volume 9.0 FL Neutrophils (%) (Auto) 52.3 % Lymphocytes (%) (Auto) 34.4 % Monocytes (%) (Auto) 7.9 % Eosinophils (%) (Auto) 3.3 % Basophils (%) (Auto) 2.1 % Neutrophils # (Auto) 2.7 TH/MM3 Lymphocytes # (Auto) 1.8 TH/MM3 Monocytes # (Auto) 0.4 TH/MM3 Eosinophils # (Auto) 0.2 TH/MM3 Basophils # (Auto) 0.1 TH/MM3 CBC Comment DIFF FINAL Differential Comment MDM Medical Decision Making Medical Screen Exam Complete: Yes Emergency Medical Condition: Yes Differential Diagnosis Pneumonia, CHF, pulmonary edema, acute kidney injury Narrative Course Patient roomed in the emergency department, basic labs and troponin as well as chest x-ray ordered for this patient, is tachypneic but able to speak in full sentences, EKG shows cardiomegaly but no evidence for acute ischemia. Patient discussed with Dr. Astudillo at 07 100 shift change to follow-up the patient's workup and disposition the patient properly. Condition: Stable Nilay Walter MD Feb 17, 2017 06:49
[2017-02-17 07:15] LABS: AUTOMATED NEUTROPHIL # 2.7 TH/MM3 (1.8-7.7); BASOPHIL # 0.1 TH/MM3 (0-0.2); BASOPHIL % 2.1 % (0.0-2.0); EOSINOPHIL # 0.2 TH/MM3 (0-0.4); EOSINOPHIL % 3.3 % (0.0-4.0); HEMATOCRIT 33.6 % (39.0-51.0); HEMO FLAGS DIFF FINAL; LYMPH % 34.4 % (9.0-44.0); LYMPHOCYTE # 1.8 TH/MM3 (1.0-4.8); MEAN CELL VOLUME 72.1 FL (80.0-100.0); MEAN CORPUSCULAR HEMOGLOBIN 21.9 PG (27.0-34.0); MEAN CORPUSCULAR HGB CONC 30.4 % (32.0-36.0); MONO % 7.9 % (0.0-8.0); NEUT % 52.3 % (16.0-70.0); PLATELET COUNT 120 TH/MM3 (150-450); RED BLOOD COUNT 4.66 MIL/MM3 (4.50-5.90); RED CELL DISTRIBUTION WIDTH 20.2 % (11.6-17.2); WHITE BLOOD COUNT 5.2 TH/MM3 (4.0-11.0)
[2017-02-17 07:23] LABS: BICARBONATE 23.8 MEQ/L (21.0-32.0)
--- NOTE | 2017-02-17 07:26 | RADRPT ---
EXAM DATE/TIME: 02/17/2017 06:59 [facility] COMPARISON: No previous studies available for comparison. INDICATIONS : Shortness of breath. MEDICAL HISTORY : Cardiovascular disease. Hypertension. Hepatitis C. SURGICAL HISTORY : Colostomy. ENCOUNTER: Initial ACUITY: 2 months PAIN SCORE: 0/10 LOCATION: Bilateral chest FINDINGS: A single view of the chest demonstrates cardiomegaly and increased pulmonary vascularity with slight interstitial prominence. The cardiomediastinal contours are unremarkable. Osseous structures are int act. CONCLUSION: Cardiomegaly with interstitial edema and probable CHF. Murray Pearson MD on February 17, 2017 at 7:24 Board Certified Radiologist. This report was verified electronically.
[2017-02-17] MEDS ORDERED: FUROSEMIDE 40 MG/4 ML VIAL IV PUSH ONE (07:45)
--- NOTE | 2017-02-17 07:59 | PD ---
Physical Exam Date Seen by Provider: Feb 17, 2017 Time Seen by Provider: 08:04 Narrative 61-year-old male came to the emergency room with history of sudden onset shortness of breath. He was seen by the previous ER physician. Please refer to his history and physical regarding further details. Sign out was to follow- up on the blood test results and the x-ray. Chest x-ray suggestive of congestive heart failure. CBC is unremarkable. Chemistry is relatively stable. Awaiting for the troponin. Data Data Last Documented VS Orders Orders Complete Blood Count With Diff (02/17/17 06:40) Basic Metabolic Panel (Bmp) (02/17/17 06:40) Iv Access Insert/Monitor (02/17/17 06:40) Ecg Monitoring (02/17/17 06:40) Oxygen Administration (02/17/17 06:40) Oximetry (02/17/17 06:40) Electrocardiogram (02/17/17 06:40) Chest, Single Ap (02/17/17 06:40) Hepatic Functional Panel (02/17/17 06:48) Furosemide Inj (Lasix Inj) (02/17/17 07:45) Troponin I (02/17/17 06:48) Heparin Inj (Heparin Inj) (02/17/17 08:45) Heparin Inj (Heparin Inj) (02/17/17 14:45) Heparin Inj (Heparin Inj) (02/17/17 14:45) Heparin-D5w 25,000 U/250 Ml (Heparin-D5w (02/17/17 08:45) Act Partial Throm Time (Ptt) (02/17/17 08:33) Prothrombin Time / Inr (Pt) (02/17/17 08:33) Occult Blood (Hemoccult) Stool (02/17/17 08:33) Admit Order (Ed Use Only) (02/17/17 08:41) Labs Laboratory Tests Test 02/17/17 06:45 White Blood Count 5.2 TH/MM3 Red Blood Count 4.66 MIL/MM3 Hemoglobin 10.2 GM/DL Hematocrit 33.6 % Mean Corpuscular Volume 72.1 FL Mean Corpuscular Hemoglobin 21.9 PG Mean Corpuscular Hemoglobin Concent 30.4 % Red Cell Distribution Width 20.2 % Platelet Count 120 TH/MM3 Mean Platelet Volume 9.0 FL Neutrophils (%) (Auto) 52.3 % Lymphocytes (%) (Auto) 34.4 % Monocytes (%) (Auto) 7.9 % Eosinophils (%) (Auto) 3.3 % Basophils (%) (Auto) 2.1 % Neutrophils # (Auto) 2.7 TH/MM3 Lymphocytes # (Auto) 1.8 TH/MM3 Monocytes # (Auto) 0.4 TH/MM3 Eosinophils # (Auto) 0.2 TH/MM3 Basophils # (Auto) 0.1 TH/MM3 CBC Comment DIFF FINAL Differential Comment Prothrombin Time 11.4 SEC Prothromb Time International Ratio 1.1 RATIO Activated Partial Thromboplast Time 27.3 SEC Blood Urea Nitrogen 33 MG/DL Creatinine 1.22 MG/DL Random Glucose 101 MG/DL Calcium Level 7.5 MG/DL Sodium Level 143 MEQ/L Potassium Level 4.0 MEQ/L Chloride Level 112 MEQ/L Carbon Dioxide Level 23.8 MEQ/L Anion Gap 7 MEQ/L Estimat Glomerular Filtration Rate 60 ML/MIN Total Bilirubin 0.3 MG/DL Direct Bilirubin 0.1 MG/DL Indirect Bilirubin 0.2 MG/DL Aspartate Amino Transf (AST/SGOT) 25 U/L Alanine Aminotransferase (ALT/SGPT) 18 U/L Alkaline Phosphatase 55 U/L Troponin I 0.10 NG/ML Total Protein 6.3 GM/DL Albumin 2.7 GM/DL [facility] Supervised Visit with LINDA: No Narrative Course 8:34 AM patient's troponin just came back in its elevated. I have started him on heparin bolus and drip. Awaiting for the admitting team to call so the patient can be admitted to CICU. Critical Care Narrative Aggregate critical care time was 30 minutes. Time to perform other separately billable procedures was not included in the critical care time. My time did not include minutes spent treating any other patients simultaneously or on activities that did not directly contribute to the patient's treatment. The services I provided to this patient were to treat and/or prevent clinically significant deterioration that could result in: Non-STEMI, heparin bolus and drip I provided critical care services requiring my management, as noted below: Chart data review, documentation time, medication orders and management, vital sign assessments/reviewing monitor data, ordering and reviewing lab tests, ordering and interpreting/reviewing x-rays and diagnostic studies, care of the patient and discussion of the patient with the admitting physicians. Diagnosis Primary Impression: Non-STEMI (non-ST elevated myocardial infarction) Additional Impressions: Congestive heart failure Qualified Codes: I50.9 - Heart failure, unspecified Respiratory distress Admitting Information Admitting Physician Requests: Admit Scripts Ipratropium HFA 12.9 GM Inh (Atrovent HFA 12.9 GM Inh) 17 Mcg/Actuation Aer 2 PUFF INH Q6HR Y for SHORTNESS OF BREATH, #1 INHALER 0 Refills Prov: Julia Medina MD R1 02/19/17 Furosemide (Furosemide) 20 Mg Tab 20 MG PO DAILY, #30 TAB Prov: Julia Medina MD R1 02/19/17 Defibrillator Jacket (Defibrillator Jacket) 1 Ea Device EA EXTERNAL ONCE for nonischemic cardiomyopathy, #1 3 Refills Energy = 150 Joules; VT Threshold = 150 BPM; VF Threshold = 200 BPM Use up to 90 days only Prov: Popeye Hernandez MD 02/18/17 Condition: Stable Sho Astudillo MD Feb 17, 2017 07:59
[2017-02-17 08:27] LABS: INDIRECT BILIRUBIN 0.2 MG/DL (0.0-0.8); TOTAL BILIRUBIN ADULT 0.3 MG/DL (0.2-1.0)
--- NOTE | 2017-02-17 08:43 | HHI.HP ---
HPI Service Family Medicine Primary Care Physician No Primary Care Physician Admission Diagnosis non-STEMI, congestive heart failure Diagnoses: International Travel<30 Days: No Contact w/Intl Traveler<30days: No Known Affected Area: No History of Present Illness 61 yr old M with HTN, hep C untreated, hx of perforated colon s/p colostomy placement, tobaccoism and hx of crystal meth use presents to the ED with SOB. Accompanied by . Pt states that around 5am this morning, he woke up with severe cough. He felt congested and was trying to cough up phlegm. He started to gag and couldn't breath. He "felt as if he was gonna ." He began panicking and tried to calm himself down by taking deep breaths. Told him to immediately call 911. He was brought to the ED via ambulance. He endorses chronic chest pain, mid-sternum tightness. He reports that his chest pain was different during this episode. He denies orthopnea, SOB on exertion, sick contacts, fevers, chills, and night sweats. Reports that he used crystal meth 2 weeks ago. Also reports that he has used Percocet and Lortab in the past. Review of Systems Constitutional: DENIES: Fever, Weight loss, Night Sweats Eyes: DENIES: Blurred vision Respiratory: COMPLAINS OF: Cough, Sputum production, Shortness of breath Cardiovascular: DENIES: Chest pain, Palpitations, Orthopnea Gastrointestinal: DENIES: Abdominal pain, Diarrhea, Nausea, Vomiting Genitourinary: DENIES: Dysuria Musculoskeletal: DENIES: Muscle aches Hematologic/lymphatic: DENIES: Lymphadenopathy Neurologic: DENIES: Headache Psychiatric: DENIES: Confusion Past Family Social History Past Medical History Hypertension Hep C untreated Hemochromatosis History of pneumoperitoneum, sigmoid resection, diverticulitis with perforated viscus status post colostomy placement 2014 History of previous rhabdomyolysis with suspected kidney failure 5 yrs ago Recent admission for symptomatic gallstones 6 months ago Hypospadias with urethral stricture Tobaccoism Polysubstance abuse Past Surgical History Status post sigmoid resection with colostomy ERCP for symptomatic gallstones 6 months ago at [facility] Reported Medications Reported Meds & Active Scripts Active Reported Lisinopril 10 Mg Tab 10 Mg PO DAILY Allergies: Coded Allergies: metoprolol (Unverified Allergy, Intermediate, CHEST PRESSURE, 11/20/16) Family History Mother, 7 months ago of lung cancer Father, 20 years ago, [place], 52 yrs old Social History Patient reports tobacco use of "at least" of 1.5 ppd. 40 years smoked when he was 12 Patient ports alcohol consumption every 3-4 days. His last alcoholic beverages 3-4 days ago. However review of the previous medical record reveals a long history of alcohol abuse. Patient reports substance abuse of crystal meth which he inhales several times per year, his last use was 2 weeks ago. Also admits to percocet and lortab use Patient is and lives with his . unemployed, fell off roof 2000, hurt his back Physical Exam Vital Signs Vital Signs Date Time Temp Pulse Resp B/P (MAP) Pulse Ox O2 Delivery O2 Flow Rate FiO2 02/17/17 06:42 97 Room Air 02/17/17 06:32 98.2 100 23 168/99 (122) 96 Physical Exam GENERAL: disheveled, looks older than his stated age, in NAD SKIN: several excoriations on b/l arms HEAD: Atraumatic. Normocephalic. EYES: PERRLA, EOMI ENT: Very poor dentition, most of teeth are gone, 2 dental caries left, throat clear NECK: Trachea midline. No JVD or lymphadenopathy. No carotide bruits. CARDIOVASCULAR: Regular rate and rhythm without murmurs, gallops, or rubs. RESPIRATORY: Clear to auscultation. Breath sounds equal bilaterally. No wheezes , rales, or rhonchi. GASTROINTESTINAL: Abdomen soft, non-tender, nondistended. No hepato-splenomegaly , or palpable masses. No guarding. + BS, colostomy bag in place. No hepatojugular reflex. MUSCULOSKELETAL: Extremities without clubbing, cyanosis, or edema. No joint tenderness, effusion, or edema noted. NEUROLOGICAL: Awake and alert. Cranial nerves II through XII intact. Motor and sensory grossly within normal limits. Five out of 5 muscle strength in all muscle groups. Normal speech. Laboratory Laboratory Tests Test 02/17/17 06:45 White Blood Count 5.2 Red Blood Count 4.66 Hemoglobin 10.2 Hematocrit 33.6 Mean Corpuscular Volume 72.1 Mean Corpuscular Hemoglobin 21.9 Mean Corpuscular Hemoglobin Concent 30.4 Red Cell Distribution Width 20.2 Platelet Count 120 Mean Platelet Volume 9.0 Neutrophils (%) (Auto) 52.3 Lymphocytes (%) (Auto) 34.4 Monocytes (%) (Auto) 7.9 Eosinophils (%) (Auto) 3.3 Basophils (%) (Auto) 2.1 Neutrophils # (Auto) 2.7 Lymphocytes # (Auto) 1.8 Monocytes # (Auto) 0.4 Eosinophils # (Auto) 0.2 Basophils # (Auto) 0.1 CBC Comment DIFF FINAL Differential Comment Blood Urea Nitrogen 33 Creatinine 1.22 Random Glucose 101 Calcium Level 7.5 Sodium Level 143 Potassium Level 4.0 Chloride Level 112 Carbon Dioxide Level 23.8 Anion Gap 7 Estimat Glomerular Filtration Rate 60 Total Bilirubin 0.3 Direct Bilirubin 0.1 Indirect Bilirubin 0.2 Aspartate Amino Transf (AST/SGOT) 25 Alanine Aminotransferase (ALT/SGPT) 18 Alkaline Phosphatase 55 Troponin I 0.10 Total Protein 6.3 Albumin 2.7 Result Diagram: 02/17/17 0645 02/17/1745 Imaging Last Impressions Chest X-Ray 02/17/17 0640 Signed Impressions: Service Date/Time: February 06:59 - CONCLUSION: Cardiomegaly with interstitial edema and probable CHF. Murray Pearson MD Caprini VTE Risk Assessment Caprini VTE Risk Assessment: Mod/High Risk (score >= 2) Caprini Risk Assessment Model Point Value = 1 Point Value = 2 Point Value = 3 Point Value = 5 Age 41-60 Minor surgery BMI > 25 kg/m2 Swollen legs Varicose veins or History of unexplained or recurrent spontaneous Oral contraceptives or hormone replacement Sepsis (< 1 month) Serious lung disease, including pneumonia (< 1 month) Abnormal pulmonary function Acute myocardial infarction Congestive heart failure (< 1 month) History of inflammatory bowel disease Medical patient at bed rest Age 61-74 Arthroscopic surgery Major open surgery (> 45 min) Laparoscopic surgery (> 45 min) Malignancy Confined to bed (> 72 hours) Immobilizing plaster cast Central venous access Age >= 75 History of VTE Family history of VTE Factor V Leiden Prothrombin [id number] Lupus anticoagulant Anticardiolipin antibodies Elevated serum homocysteine Heparin-induced thrombocytopenia Other congenital or acquired thrombophilia Stroke (< 1 month) Elective arthroplasty Hip, pelvis, or leg fracture Acute spinal cord injury (< 1 month) Prophylaxis Regimen Total Risk Factor Score Risk Level Prophylaxis Regimen 0-1 Low Early ambulation 2 Moderate Order ONE of the following: *Sequential Compression Device (SCD) *Heparin 5000 units SQ BID 3-4 Higher Order ONE of the following medications: *Heparin 5000 units SQ TID *Enoxaparin/Lovenox 40 mg SQ daily (WT < 150 kg, CrCl > 30 mL/min) *Enoxaparin/Lovenox 30 mg SQ daily (WT < 150 kg, CrCl > 10-29 mL/min) *Enoxaparin/Lovenox 30 mg SQ BID (WT < 150 kg, CrCl > 30 mL/min) AND/OR *Sequential Compression Device (SCD) 5 or more Highest Order ONE of the following medications: *Heparin 5000 units SQ TID (Preferred with Epidurals) *Enoxaparin/Lovenox 40 mg SQ daily (WT < 150 kg, CrCl > 30 mL/min) *Enoxaparin/Lovenox 30 mg SQ daily (WT < 150 kg, CrCl > 10-29 mL/min) *Enoxaparin/Lovenox 30 mg SQ BID (WT < 150 kg, CrCl > 30 mL/min) AND *Sequential Compression Device (SCD) Assessment and Plan Assessment and Plan 61 yr old M with HTN, hep C untreated, hx of perforated colon s/p colostomy placement, tobaccoism and hx of crystal meth use presents with SOB. Admitted for suspected CHF exacerbation and ACS r/o. Code Status Full Code Discussed Condition With Dr. Wolfe and Dr. Martinez Problem List: (1) Congestive heart failure ICD Codes: I50.9 - Heart failure, unspecified Status: Acute Plan: s/p 40mg IV Furosemide in ED CXR revealed cardiomegaly with interstitial edema BNP 972 Troponin 0.10 EKG sinus rhythm, possible left ventricle hypertrophy, nonspecific T wave abnormality 2D echo ordered with Doppler Continue to trend troponins along with EKG Cardiology consulted, recs appreciate on heparin GTT, NPO after midnight, Lexiscan in the AM Caution with diuresis, already 1800ml out today (2) Non-STEMI (non-ST elevated myocardial infarction) ICD Codes: I21.4 - Non-ST elevation (NSTEMI) myocardial infarction Status: Acute Plan: Continue to trend troponins along with EKGs Telemetry monitoring See plan above (3) Hx of hepatitis C ICD Codes: Z86.19 - Personal history of other infectious and parasitic diseases Plan: Hx of Hep C, untreated LFTs wnl (4) HTN (hypertension) ICD Codes: I10 - Essential (primary) hypertension Plan: Continue with Lisinopril 10mg PO daily Clonidine 0.1 mg PO PRN for SBP > 180, DBP>100 (5) Alcohol abuse ICD Codes: F10.10 - Alcohol abuse Status: Acute Plan: -[facility] protocol (6) Nutrition, metabolism, and development symptoms ICD Codes: R63.8 - Other symptoms and signs concerning food and fluid intake Plan: Diet: Heart Healthy Fluids: None Electrolytes: monitor and replace as needed vitals q4h, monitor I & Os DVT ppx: heparin GTT GI ppx: protonix 40mg PO daily Physician Certification 2 Midnight Certification Type: Admission for Inpatient Services Order for Inpatient Services The services are ordered in accordance with Medicare regulations or non- Medicare payer requirements, as applicable. In the case of services not specified as inpatient-only, they are appropriately provided as inpatient services in accordance with the 2-midnight benchmark. Estimated LOS (days): 2 2 days is the estimated time the patient will need to remain in the hospital, assuming treatment plan goals are met and no additional complications. Post-Hospital Plan: Home Problem Qualifiers (1) Congestive heart failure: Qualified Codes: I50.9 - Heart failure, unspecified Julia Medina MD R1 Feb 17, 2017 08:43
[2017-02-17] MEDS ORDERED: HEPARIN SODIUM - IV 10,000 UNITS/10 ML VIAL IV PUSH ONE (08:45)
[2017-02-17 09:34] LABS: APTT (PATIENT) 27.3 SEC (24.3-30.1); INTERNATIONAL NORMALIZED RATIO 1.1 RATIO; PROTHROMBIN TIME - PATIENT 11.4 SEC (9.8-11.6)
[2017-02-17] MEDS: HEPARIN-D5W 25,000 U/250 ML 250 ML IV PRN (09:46)
[2017-02-17] MEDS ORDERED: SENNOSIDES 8.6 MG TAB PO PRN (10:30)
[2017-02-17] MEDS ORDERED: BISACODYL 10 MG SUPP RECTAL PRN (10:30)
[2017-02-17] MEDS: SODIUM CHLORIDE 0.9% FLUSH 10 ML FLUSH IV FLUSH SCH ×2 (10:30→22:33)
[2017-02-17] MEDS ORDERED: ACETAMINOPHEN 325 MG TAB PO PRN (10:30)
[2017-02-17] MEDS ORDERED: MAGNESIUM HYDROXIDE SUSP 30 ML CUP PO PRN (10:30)
[2017-02-17] MEDS: DOCUSATE SODIUM 50 MG/SENNA 8.6 MG TAB PO SCH ×2 (10:30→21:00)
[2017-02-17] MEDS ORDERED: NALOXONE HCL 0.4 MG/ML AMP IV PUSH PRN (10:30)
[2017-02-17] MEDS ORDERED: ONDANSETRON HCL 4 MG/2 ML VIAL IVP PRN (10:30)
[2017-02-17] MEDS ORDERED: LACTULOSE SYRUP 20 GM/30 ML CUP PO PRN (10:30)
[2017-02-17] MEDS ORDERED: SODIUM CHLORIDE 0.9% FLUSH 10 ML FLUSH IV FLUSH PRN (10:30)
[2017-02-17] MEDS: LISINOPRIL 10 MG TAB PO SCH (11:41)
[2017-02-17] MEDS ORDERED: FLUMAZENIL 0.5 MG/5 ML VIAL IV PUSH PRN (12:00)
[2017-02-17] MEDS ORDERED: LORazepam 2 MG TAB PO PRN (12:00)
[2017-02-17] MEDS ORDERED: NITROGLYCERIN 0.3 MG SL 100 TABS/BTL SL PRN (12:30)
[2017-02-17] MEDS: PANTOPRAZOLE SOD 40 MG DELAYED RELEASE TAB PO SCH (13:15)
[2017-02-17] MEDS ORDERED: HEPARIN SODIUM - IV 10,000 UNITS/10 ML VIAL IV PUSH PRN (14:45)
--- NOTE | 2017-02-17 14:52 | EKG ---
Date Performed: 02/17/2017 Time Performed: 06:49:39 PTAGE: 61 years EKG: Sinus rhythm POSSIBLE LEFT VENTRICULAR HYPERTROPHY NONSPECIFIC T-WAVE ABNORMALITY ABNORMAL ECG PREVIOUS TRACING : 11/20/2016 06.23 Since the prior tracing, the fairly marked inferolateral ST -T wave changes are no longer evident. Clinical correlation advised to assess the serial change. DOCTOR: Susan Blackmon Interpretating Date/Time 02/17/2017 14:52:04
--- NOTE | 2017-02-17 15:00 | PD.CONS ---
HPI Consult Requested By Primary Care Physician No Primary Care Physician History of Present Illness 61 yr old M with HTN, hep C untreated, hx of perforated colon s/p colostomy placement, tobaccoism and hx of crystal meth use who presented with shortness of breath. Patient has been having shortness of breath for the past few days. He's been having a productive cough with yellow sputum. He denies any prior history of heart disease. He does state that he occasionally has episodes of a few seconds of sharp chest discomfort, cannot tell me how often these episodes occur. No chest pain currently. Chest x-ray done in the ED showed edema. He received IV Lasix in the ED and is now having lower extremity cramping. Admits to current tobacco abuse and occasional methamphetamine use. Review of Systems Negative except as stated in history of present illness Past Family Social History Allergies: Coded Allergies: metoprolol (Unverified Allergy, Intermediate, CHEST PRESSURE, 11/20/16) Past Medical History Hypertension Hep C untreated Hemochromatosis History of pneumoperitoneum, sigmoid resection, diverticulitis with perforated viscus status post colostomy placement 2013 History of previous rhabdomyolysis with suspected kidney failure 5 yrs ago Recent admission for symptomatic gallstones 6 months ago Hypospadias with urethral stricture Tobaccoism Polysubstance abuse Past Surgical History Status post sigmoid resection with colostomy ERCP for symptomatic gallstones 3-6 months ago at [facility] Reported Medications Reported Meds & Active Scripts Active Reported Lisinopril 10 Mg Tab 10 Mg PO DAILY Active Ordered Medications Current Medications Medications (Trade) Dose Ordered Sig/Erica Route Start Time Stop Time Status Last Admin (Heparin Inj) 5,000 units UNSCH PRN IV PUSH 02/17/17 14:45 (Heparin Inj) 2,500 units UNSCH PRN IV PUSH 02/17/17 14:45 Heparin Sodium/ Dextrose 250 ml @ 8 mls/hr TITRATE PRN IV 02/17/17 08:45 02/17/17 09:46 (NS Flush) 2 ml UNSCH PRN IV FLUSH 02/17/17 10:30 (NS Flush) 2 ml BID IV FLUSH 02/17/17 10:30 (Tylenol) 650 mg Q4H PRN PO 02/17/17 10:30 (Zofran Inj) 4 mg Q6H PRN IVP 02/17/17 10:30 (Narcan Inj) 0.4 mg UNSCH PRN IV PUSH 02/17/17 10:30 (Danielle-Colace) 1 tab BID PO 02/17/17 10:30 (Milk Of Magnesia Liq) 30 ml Q12H PRN PO 02/17/17 10:30 (Senokot) 17.2 mg Q12H PRN PO 02/17/17 10:30 (Dulcolax Supp) 10 mg DAILY PRN RECTAL 02/17/17 10:30 (Lactulose Liq) 30 ml DAILY PRN PO 02/17/17 10:30 (Prinivil) 10 mg DAILY PO 02/17/17 11:00 02/17/17 11:41 (Catapres) 0.1 mg Q6H PRN PO 02/17/17 11:00 (Romazicon Inj) 0.2 mg Q1M PRN IV PUSH 02/17/17 12:00 (Ativan) 1 mg Q4H PRN PO 02/17/17 12:00 (Ativan) 2 mg Q2H PRN PO 02/17/17 12:00 (Atrovent Neb) 0.5 mg Q4HR NEB PRN NEB 02/17/17 12:30 (Nitrostat Sl) 0.3 mg Q5M PRN SL 02/17/17 12:30 Multivitamins 10 ml/Folic Acid 1 mg/Sodium Chloride 510.2 ml @ 125 mls/hr Q24H IV 02/17/17 15:00 02/22/17 14:59 Thiamine HCl 100 mg/Sodium Chloride 101 ml @ 100 mls/hr Q24H IV 02/17/17 14:00 02/20/17 13:59 (Vitamin B1) 100 mg DAILY PO 02/21/17 09:00 (Protonix) 40 mg DAILY PO 02/17/17 13:15 Family History Mother, 7 months ago of lung cancer Father, 20 years ago, [place], 52 yrs old Social History Patient reports tobacco use of "at least" of 1.5 ppd. 40 years smoked when he was 12 Patient ports alcohol consumption every 3-4 days. His last alcoholic beverages 3-4 days ago. However review of the previous medical record reveals a long history of alcohol abuse. Patient reports substance abuse of crystal meth which he inhales several times per year, his last use was 2 weeks ago Patient is and lives with his . unemployed, fell off roof 2001 hurt his back Physical Exam Vital Signs Vital Signs Date Time Temp Pulse Resp B/P (MAP) Pulse Ox O2 Delivery O2 Flow Rate FiO2 02/17/17 13:09 91 22 134/81 (98) 99 Nasal Cannula 2.00 02/17/17 11:03 79 16 158/79 (105) 98 Nasal Cannula 1.00 02/17/17 06:42 97 Room Air 02/17/17 06:32 98.2 100 23 168/99 (122) 96 Physical Exam GENERAL: Well-developed fair-nourished chronically ill-appearing with bitemporal wasting. In no acute distress. NECK: No carotid bruits. No JVD. CARDIOVASCULAR: Regular rate and rhythm. No murmur appreciated. RESPIRATORY: No accessory muscle use. Clear to auscultation. Expiratory wheezing. MUSCULOSKELETAL: No clubbing or cyanosis. No edema. NEUROLOGICAL: Awake and alert. Normal speech. Laboratory Laboratory Tests Test 02/17/17 06:45 02/17/17 13:40 White Blood Count 5.2 Red Blood Count 4.66 Hemoglobin 10.2 Hematocrit 33.6 Mean Corpuscular Volume 72.1 Mean Corpuscular Hemoglobin 21.9 Mean Corpuscular Hemoglobin Concent 30.4 Red Cell Distribution Width 20.2 Platelet Count 120 Mean Platelet Volume 9.0 Neutrophils (%) (Auto) 52.3 Lymphocytes (%) (Auto) 34.4 Monocytes (%) (Auto) 7.9 Eosinophils (%) (Auto) 3.3 Basophils (%) (Auto) 2.1 Neutrophils # (Auto) 2.7 Lymphocytes # (Auto) 1.8 Monocytes # (Auto) 0.4 Eosinophils # (Auto) 0.2 Basophils # (Auto) 0.1 CBC Comment DIFF FINAL Differential Comment Prothrombin Time 11.4 Prothromb Time International Ratio 1.1 Activated Partial Thromboplast Time 27.3 Blood Urea Nitrogen 33 Creatinine 1.22 Random Glucose 101 Calcium Level 7.5 Sodium Level 143 Potassium Level 4.0 Chloride Level 112 Carbon Dioxide Level 23.8 Anion Gap 7 Estimat Glomerular Filtration Rate 60 Total Bilirubin 0.3 Direct Bilirubin 0.1 Indirect Bilirubin 0.2 Aspartate Amino Transf (AST/SGOT) 25 Alanine Aminotransferase (ALT/SGPT) 18 Alkaline Phosphatase 55 Troponin I 0.10 0.10 Total Protein 6.3 Albumin 2.7 Result Diagram: 02/17/17 0645 02/17/17 0645 Imaging Last Impressions Chest X-Ray 02/17/17 0640 Signed Impressions: Service Date/Time: February 06:59 - CONCLUSION: Cardiomegaly with interstitial edema and probable CHF. Murray Pearson MD Assessment and Plan Assessment and Plan 61 yr old M with HTN, hep C untreated, hx of perforated colon s/p colostomy placement, tobaccoism and hx of crystal meth use who presented with shortness of breath Elevated troponin: Rule out NSTEMI. Troponin 0.10. On heparin gtt. Plan for Lexiscan in the a.m. CHF?: Chest x-ray with findings concerning for CHF. Check BNP. Echocardiogram has been ordered. Already w/ 1800mLs out today, caution with diuresis. Juliano Puente Feb 17, 2017 15:00
[2017-02-17] MEDS: THIAMINE INJ 100 MG in SODIUM CHLORIDE 0.9% INJ 100 ML IV SCH (15:50)
[2017-02-17 16:29] LABS: APTT (PATIENT) 43.4 SEC (24.3-30.1)
[2017-02-17] MEDS: MULTIVITAMIN INJ 10 ML, FOLIC ACID INJ 1 MG in SODIUM CHLORID 0.9% 500 ML INJ 500 ML IV SCH (16:47)
[2017-02-17 22:19] LABS: APTT (PATIENT) 35.3 SEC (24.3-30.1)
[2017-02-17] MEDS: HEPARIN SODIUM - IV 10,000 UNITS/10 ML VIAL IV PUSH PRN (22:43)
[2017-02-17] MEDS: cloNIDine HCL 0.1 MG TAB PO PRN (23:23)
[2017-02-18] VITALS (27 sets, daily range): BP systolic 127–154; BP diastolic 70–87; PULSE 70–97; RESP 16–18; TEMP 97.6–98.2; O2SAT 97–98
[2017-02-18] MEDS: LORazepam 1 MG TAB PO PRN ×2 (03:18→09:02)
[2017-02-18] MEDS: RESP: IPRATROPIUM 0.5 MG/2.5 ML NEB NEB PRN (03:39)
[2017-02-18 04:57] LABS: AUTOMATED NEUTROPHIL # 2.2 TH/MM3 (1.8-7.7); BASOPHIL # 0.1 TH/MM3 (0-0.2); BASOPHIL % 1.3 % (0.0-2.0); EOSINOPHIL # 0.1 TH/MM3 (0-0.4); EOSINOPHIL % 3.3 % (0.0-4.0); HEMATOCRIT 33.1 % (39.0-51.0); LYMPH % 38.6 % (9.0-44.0); LYMPHOCYTE # 1.7 TH/MM3 (1.0-4.8); MEAN CELL VOLUME 70.6 FL (80.0-100.0); MEAN CORPUSCULAR HEMOGLOBIN 21.3 PG (27.0-34.0); MEAN CORPUSCULAR HGB CONC 30.2 % (32.0-36.0); MONO % 8.5 % (0.0-8.0); NEUT % 48.3 % (16.0-70.0); PLATELET COUNT 99 TH/MM3 (150-450); RED BLOOD COUNT 4.69 MIL/MM3 (4.50-5.90); RED CELL DISTRIBUTION WIDTH 20.3 % (11.6-17.2); WHITE BLOOD COUNT 4.5 TH/MM3 (4.0-11.0)
[2017-02-18 05:02] LABS: HEMO FLAGS AUTO DIFF
[2017-02-18 05:07] LABS: APTT (PATIENT) 47.1 SEC (24.3-30.1)
[2017-02-18 05:21] LABS: BICARBONATE 28.4 MEQ/L (21.0-32.0); POTASSIUM 3.4 MEQ/L (3.5-5.1)
[2017-02-18 06:59] LABS: PLATELET ESTIMATE SMEAR LOW (NORMAL); PLATELET MORPHOLOGY CLUMPED (NORMAL); SCAN/DIFF AUTO DIFF CONFIRMED
--- NOTE | 2017-02-18 08:52 | PD.CARD.PN ---
Subjective Subjective Remarks Has chest pain when he coughs. Shortness of breath is improving. Agreeable for stress testing today. Hoping to go home soon. (Juliano Puente) Objective Medications Current Medications Medications (Trade) Dose Ordered Sig/Erica Route Start Time Stop Time Status Last Admin (Heparin Inj) 5,000 units UNSCH PRN IV PUSH 02/17/17 14:45 (Heparin Inj) 2,500 units UNSCH PRN IV PUSH 02/17/17 14:45 02/17/17 22:43 Heparin Sodium/ Dextrose 250 ml @ 8 mls/hr TITRATE PRN IV 02/17/17 08:45 02/17/17 09:46 (NS Flush) 2 ml UNSCH PRN IV FLUSH 02/17/17 10:30 (NS Flush) 2 ml BID IV FLUSH 02/17/17 10:30 02/17/17 22:33 (Tylenol) 650 mg Q4H PRN PO 02/17/17 10:30 (Zofran Inj) 4 mg Q6H PRN IVP 02/17/17 10:30 (Narcan Inj) 0.4 mg UNSCH PRN IV PUSH 02/17/17 10:30 (Danielle-Colace) 1 tab BID PO 02/17/17 10:30 (Milk Of Magnesia Liq) 30 ml Q12H PRN PO 02/17/17 10:30 (Senokot) 17.2 mg Q12H PRN PO 02/17/17 10:30 (Dulcolax Supp) 10 mg DAILY PRN RECTAL 02/17/17 10:30 (Lactulose Liq) 30 ml DAILY PRN PO 02/17/17 10:30 (Prinivil) 10 mg DAILY PO 02/17/17 11:00 02/17/17 11:41 (Catapres) 0.1 mg Q6H PRN PO 02/17/17 11:00 02/17/17 23:23 (Romazicon Inj) 0.2 mg Q1M PRN IV PUSH 02/17/17 12:00 (Ativan) 1 mg Q4H PRN PO 02/17/17 12:00 02/18/17 03:18 (Ativan) 2 mg Q2H PRN PO 02/17/17 12:00 (Atrovent Neb) 0.5 mg Q4HR NEB PRN NEB 02/17/17 12:30 02/18/17 03:39 (Nitrostat Sl) 0.3 mg Q5M PRN SL 02/17/17 12:30 Multivitamins 10 ml/Folic Acid 1 mg/Sodium Chloride 510.2 ml @ 125 mls/hr Q24H IV 02/17/17 15:00 02/22/17 14:59 02/17/17 16:47 Thiamine HCl 100 mg/Sodium Chloride 101 ml @ 100 mls/hr Q24H IV 02/17/17 14:00 02/20/17 13:59 02/17/17 15:50 (Vitamin B1) 100 mg DAILY PO 02/21/17 09:00 (Protonix) 40 mg DAILY PO 02/17/17 13:15 Vital Signs / I&O Vital Signs Date Time Temp Pulse Resp B/P (MAP) Pulse Ox O2 Delivery O2 Flow Rate FiO2 02/18/17 08:00 78 02/18/17 07:53 98.2 93 17 146/82 (103) 98 02/18/17 07:00 74 02/18/17 06:00 84 02/18/17 05:03 83 02/18/17 04:00 81 02/18/17 03:12 98.0 93 17 154/86 (108) 98 02/18/17 03:00 83 02/18/17 02:00 97 02/18/17 01:00 91 02/18/17 00:03 97 02/17/17 23:47 97 21 02/17/17 23:00 94 02/17/17 22:59 98.4 91 18 155/100 (118) 98 02/17/17 22:55 02/17/17 18:56 96 16 154/79 (104) 95 Room Air 02/17/17 17:28 96 17 165/80 (108) 96 Room Air 02/17/17 16:04 98 23 143/88 (106) 96 Nasal Cannula 2.00 02/17/17 13:09 91 22 134/81 (98) 99 Nasal Cannula 2.00 02/17/17 11:03 79 16 158/79 (105) 98 Nasal Cannula 1.00 I/O 02/17/17 02/17/17 02/17/17 02/18/17 02/18/1702/18/17 07:00 15:00 23:00 07:00 15:00 23:00 Intake Total 601 ml 240 ml Output Total 1800 ml Balance -1800 ml 601 ml 240 ml Intake Oral 240 ml IV Total 601 ml Output Urine Total 1800 ml Physical Exam GENERAL: Well-developed well-nourished. In no acute distress. NECK: No carotid bruits. No JVD. CARDIOVASCULAR: Regular rate and rhythm. No murmur appreciated. RESPIRATORY: No accessory muscle use. Clear to auscultation. Breath sounds equal bilaterally. MUSCULOSKELETAL: No clubbing or cyanosis. No edema. NEUROLOGICAL: Awake and alert. Normal speech. Laboratory Laboratory Tests Test 02/17/17 13:40 02/17/17 15:58 02/17/17 21:45 02/18/17 04:04 Troponin I 0.10 NG/ML 0.11 NG/ML Activated Partial Thromboplast Time 43.4 SEC 35.3 SEC 47.1 SEC B-Type Natriuretic Peptide 972 PG/ML White Blood Count 4.5 TH/MM3 Red Blood Count 4.69 MIL/MM3 Hemoglobin 10.0 GM/DL Hematocrit 33.1 % Mean Corpuscular Volume 70.6 FL Mean Corpuscular Hemoglobin 21.3 PG Mean Corpuscular Hemoglobin Concent 30.2 % Red Cell Distribution Width 20.3 % Platelet Count 99 TH/MM3 Mean Platelet Volume 9.0 FL Neutrophils (%) (Auto) 48.3 % Lymphocytes (%) (Auto) 38.6 % Monocytes (%) (Auto) 8.5 % Eosinophils (%) (Auto) 3.3 % Basophils (%) (Auto) 1.3 % Neutrophils # (Auto) 2.2 TH/MM3 Lymphocytes # (Auto) 1.7 TH/MM3 Monocytes # (Auto) 0.4 TH/MM3 Eosinophils # (Auto) 0.1 TH/MM3 Basophils # (Auto) 0.1 TH/MM3 CBC Comment AUTO DIFF Differential Comment AUTO DIFF CONFIRMED Platelet Estimate LOW Platelet Morphology Comment CLUMPED Blood Urea Nitrogen 26 MG/DL Creatinine 0.90 MG/DL Random Glucose 96 MG/DL Calcium Level 8.1 MG/DL Sodium Level 142 MEQ/L Potassium Level 3.4 MEQ/L Chloride Level 106 MEQ/L Carbon Dioxide Level 28.4 MEQ/L Anion Gap 8 MEQ/L Estimat Glomerular Filtration Rate 86 ML/MIN Imaging Last Impressions Chest X-Ray 02/17/17 0640 Signed Impressions: Service Date/Time: February 06:59 - CONCLUSION: Cardiomegaly with interstitial edema and probable CHF. Murray Pearson MD (Juliano Puente) Assessment and Plan Assessment and Plan 61 yr old M with HTN, hep C untreated, hx of perforated colon s/p colostomy placement, tobaccoism and hx of crystal meth use who presented with shortness of breath Elevated troponin: Rule out NSTEMI. Troponin 0.10. On heparin gtt. Lexiscan today. CHF?: Chest x-ray with findings concerning for CHF and BNP elevated. Echocardiogram ordered. Good diuresis after Lasix 1. (Juliano Puente) Assessment and Plan acute systolic CHF nonischemic cardiomyopathy - EF 20%. continue lisinopril lasix 20 mg PO [facility] will sign off call with further questions (Popeye Hernandez MD) Juliano Puente Feb 18, 2017 08:52 Popeye Hernandez MD Feb 18, 2017 14:38
[2017-02-18] MEDS: PANTOPRAZOLE SOD 40 MG DELAYED RELEASE TAB PO SCH (08:57)
[2017-02-18] MEDS: LISINOPRIL 10 MG TAB PO SCH (08:57)
[2017-02-18] MEDS: SODIUM CHLORIDE 0.9% FLUSH 10 ML FLUSH IV FLUSH SCH ×2 (08:58→21:00)
[2017-02-18] MEDS: DOCUSATE SODIUM 50 MG/SENNA 8.6 MG TAB PO SCH ×2 (08:58→21:00)
[2017-02-18] MEDS ORDERED: REGADENOSON INJ 0.4 MG/5 ML SYR ONE (10:54)
--- NOTE | 2017-02-18 11:20 | HHI.FPPN ---
Subjective Remarks Patient is doing well this morning. He denies chest pain, nausea, vomiting, fever, chills. He does have shortness of breath when lying flat. Patient is seen in the nuclear medicine holding area prior to Lexiscan. He is looking for to getting his procedure over with. (Moshe Torres MD, R3) Objective Vitals Vital Signs Date Time Temp Pulse Resp B/P (MAP) Pulse Ox O2 Delivery O2 Flow Rate FiO2 02/18/17 10:00 81 02/18/17 09:00 88 02/18/17 08:00 78 02/18/17 07:53 98.2 93 17 146/82 (103) 98 02/18/17 07:00 74 02/18/17 06:00 84 02/18/17 05:03 83 02/18/17 04:00 81 02/18/17 03:12 98.0 93 17 154/86 (108) 98 02/18/17 03:00 83 02/18/17 02:00 97 02/18/17 01:00 91 02/18/17 00:03 97 02/17/17 23:47 97 21 02/17/17 23:00 94 02/17/17 22:59 98.4 91 18 155/100 (118) 98 02/17/17 22:55 02/17/17 18:56 96 16 154/79 (104) 95 Room Air 02/17/17 17:28 96 17 165/80 (108) 96 Room Air 02/17/17 16:04 98 23 143/88 (106) 96 Nasal Cannula 2.00 02/17/17 13:09 91 22 134/81 (98) 99 Nasal Cannula 2.00 I/O 02/17/17 02/17/17 02/17/17 02/18/17 02/18/17 02/18/17 07:00 15:00 23:00 07:00 15:00 23:00 Intake Total 601 ml 240 ml Output Total 1800 ml Balance -1800 ml 601 ml 240 ml Intake Oral 240 ml IV Total 601 ml Output Urine Total 1800 ml (Moshe Torres MD, R3) Result Diagram: 02/18/174 02/18/17 0404 Imaging Last Impressions Chest X-Ray 02/17/17 0640 Signed Impressions: Service Date/Time: February 06:59 - CONCLUSION: Cardiomegaly with interstitial edema and probable CHF. Murray Pearson MD Objective Remarks GENERAL: disheveled, looks older than his stated age, in NAD SKIN: several excoriations on b/l arms HEAD: Atraumatic. Normocephalic. EYES: PERRLA, EOMI ENT: Very poor dentition, most of teeth are gone, 2 dental caries left, throat clear NECK: Trachea midline. No JVD or lymphadenopathy. No carotide bruits. CARDIOVASCULAR: Regular rate and rhythm without murmurs, gallops, or rubs. RESPIRATORY: Clear to auscultation. Breath sounds equal bilaterally. No wheezes , rales, or rhonchi. GASTROINTESTINAL: Abdomen soft, non-tender, nondistended. No hepato-splenomegaly , or palpable masses. No guarding. + BS, colostomy bag in place. No hepatojugular reflex. MUSCULOSKELETAL: Extremities without clubbing, cyanosis, or edema. No joint tenderness, effusion, or edema noted. NEUROLOGICAL: Awake and alert. Cranial nerves II through XII intact. Motor and sensory grossly within normal limits. Five out of 5 muscle strength in all muscle groups. Normal speech. (Moshe Torres MD, R3) A/P Assessment and Plan 61 yr old M with HTN, hep C untreated, hx of perforated colon s/p colostomy placement, tobaccoism and hx of crystal meth use presents with SOB. Admitted for suspected CHF exacerbation and ACS r/o. Discharge Planning pending workup (Moshe Torres MD, R3) Attending Attestation Medical rounds were performed this morning with medical residents, case discussed in detail,EMR reviewed, patient seen and examined, agree with above documentation, see Orders. (Joe Wolfe MD) Problem List: (1) Congestive heart failure ICD Codes: I50.9 - Heart failure, unspecified Status: Acute Plan: s/p 40mg IV Furosemide in ED CXR revealed cardiomegaly with interstitial edema BNP 972 Troponin 0.10-->0.10-->0.11 EKG sinus rhythm, possible left ventricle hypertrophy, nonspecific T wave abnormality 2D echo ordered with Doppler Cardiology consulted, recs appreciate Cont heparin drip Lexiscan today (2) Non-STEMI (non-ST elevated myocardial infarction) ICD Codes: I21.4 - Non-ST elevation (NSTEMI) myocardial infarction Status: Acute Plan: trended troponins remain stable Telemetry monitoring See plan above (3) Hx of hepatitis C ICD Codes: Z86.19 - Personal history of other infectious and parasitic diseases Status: Chronic Plan: Hx of Hep C, untreated LFTs wnl (4) HTN (hypertension) ICD Codes: I10 - Essential (primary) hypertension Status: Chronic Plan: Continue with Lisinopril 10mg PO daily Clonidine 0.1 mg PO PRN for SBP > 180, DBP>100 (5) Alcohol abuse ICD Codes: F10.10 - Alcohol abuse Status: Acute Plan: -CIWA protocol (6) Nutrition, metabolism, and development symptoms ICD Codes: R63.8 - Other symptoms and signs concerning food and fluid intake Plan: Diet: Heart Healthy Fluids: None Electrolytes: monitor and replace as needed vitals q4h, monitor I & Os DVT ppx: heparin GTT GI ppx: protonix 40mg PO daily (Moshe Torres MD, R3) Problem Qualifiers (1) Congestive heart failure: Qualified Codes: I50.9 - Heart failure, unspecified Moshe Torres MD, R3 Feb 18, 2017 11:20 Joe Wolfe MD Feb 18, 2017 15:55
--- NOTE | 2017-02-18 12:13 | RADRPT ---
EXAM DATE/TIME: 02/18/2017 10:50 [facility] COMPARISON: CT ABDOMEN & PELVIS W/O CONTRAST, November 21, 2016, 20:02. INDICATIONS : Mid chest pain with shortness of breath for two days. Angina. DOSE: 25.4 mCi Tc99m Myoview at stress. 8.5 mCi Tc99m Myoview at rest. 0.4 mg Lexiscan STRESS SYMPTOMS: Chest pain and dyspnea. EJECTION FRACTION: 18% MEDICAL HISTORY : Hepatitis C. Hypertension. SURGICAL HISTORY : Colostomy. ENCOUNTER: Initial ACUITY: 2 days PAIN SCALE: 5/10 LOCATION: Midsternal chest TECHNIQUE: The patient underwent pharmacologic stress with infusion of prescribed dose. Continuous ECG tracing was monitored during stress. Gated SPECT imaging was performed after stress and conventional SPECT i maging was performed at rest. The examination was performed on a SPECT/CT scanner, both attenuation and non-corrected datasets were reviewed. FINDINGS: DISTRIBUTION: The maximum perfused segment at stress is in the anterolateral wall. PERFUSION STUDY: The ventricular cavity is dilated. No significant reversible perfusion defect is identified. GATED STUDY: There is profound, global hypokinesis with ejection fraction estimated only at 18%. CONCLUSION: 1. Dilation of the ventricular cavity with severely depressed ejection fraction no definite reversibl e perfusion defect is identified. No reversible perfusion defect to indicate stress-induced myocardia l ischemia is identified. Study would suggest a cardiomyopathy. RISK CATEGORY: High (>3% Annual Mortality Rate) Ivan Gonzalez MD on February 18, 2017 at 12:08 Board Certified Radiologist. This report was verified electronically.
[2017-02-18 13:56] LABS: APTT (PATIENT) 37.3 SEC (24.3-30.1)
[2017-02-18] MEDS: THIAMINE INJ 100 MG in SODIUM CHLORIDE 0.9% INJ 100 ML IV SCH (13:58)
[2017-02-18] MEDS: HEPARIN SODIUM - IV 10,000 UNITS/10 ML VIAL IV PUSH PRN (14:07)
--- NOTE | 2017-02-18 14:18 | ECHRPT ---
Indication: heart failure CONCLUSIONS Mildly dilated left ventricle. Mild concentric left ventricular hypertrophy. The left ventricular systolic function is severely reduced with an estimated ejection fraction of 20 %. There is mild hypokinesis of the basal posterior and basal lateral mckenna; all other segments are severely hypokinetic. Structurally normal mitral valve. Trace mitral valve regurgitation. Trileaflet aortic valve. No aortic valve regurgitation. Mild to moderate leaflet sclerosis and calcification. Structurally normal tricuspid valve. There is mild tricuspid valve regurgitation. The estimated pulmonary arterial pressure is 27.5 mmHg. BP: / HR: Rhythm: MEASUREMENTS (Male / Female) Normal Values Technical Quality:Good 2D ECHO LV Diastolic Diameter PLAX 5.1 cm 4.2 - 5.9 / 3.9 - 5.3 cm LV Systolic Diameter PLAX 4.7 cm IVS Diastolic Thickness 1.6 cm 0.6 - 1.0 / 0.6 - 0.9 cm LVPW Diastolic Thickness 1.5 cm 0.6 - 1.0 / 0.6 - 0.9 cm LV Relative Wall Thickness 0.6 RV Internal Dim ED PLAX 2.7 cm M-MODE Aortic Root Diameter MM 3.9 cm LA Systolic Diameter MM 4.4 cm LA Ao Ratio MM 1.1 AV Cusp Separation MM 1.3 cm DOPPLER LV E' Lateral Velocity 7.0 cm/s LV E' Septal Velocity 4.8 cm/s TR Peak Velocity 209.0 cm/s TR Peak Gradient 17.5 mmHg Right Atrial Pressure 10.0 mmHg Pulmonary Artery Systolic Pressu 27.5 mmHg Right Ventricular Systolic Press 27.5 mmHg FINDINGS LEFT VENTRICLE Mildly dilated left ventricle. Mild concentric left ventricular hypertrophy. The left ventricular systolic function is severely reduced with an estimated ejection fraction of 20 %. There is mild hypokinesis of the basal posterior and basal lateral mckenna; all other segments are severely hypokinetic. RIGHT VENTRICLE Normal right ventricular size and systolic function. LEFT ATRIUM The left atrial size is normal. RIGHT ATRIUM The right atrial size is normal. ATRIAL SEPTUM Normal atrial septal thickness without atrial level shunting by limited color doppler interrogation. AORTA The aortic root and proximal ascending aorta are normal in size on limited imaging. MITRAL VALVE Structurally normal mitral valve. Trace mitral valve regurgitation. AORTIC VALVE Trileaflet aortic valve. No aortic valve regurgitation. Mild to moderate leaflet sclerosis and calcification. TRICUSPID VALVE Structurally normal tricuspid valve. There is mild tricuspid valve regurgitation. The estimated pulmonary arterial pressure is 27.5 mmHg. PULMONARY VALVE No pulmonary valve regurgitation or stenosis. VESSELS The inferior vena cava is normal in size. PERICARDIUM No pericardial effusion. Enzo Moreland MD (Electronically Signed) Final Date:18 February 2017 14:17
[2017-02-18] MEDS ORDERED: DEFIB EXTERNAL (14:37)
[2017-02-18] MEDS: HEPARIN-D5W 25,000 U/250 ML 250 ML IV PRN (15:09)
[2017-02-18] MEDS: MULTIVITAMIN INJ 10 ML, FOLIC ACID INJ 1 MG in SODIUM CHLORID 0.9% 500 ML INJ 500 ML IV SCH (15:12)
[2017-02-18] MEDS: FUROSEMIDE 20 MG TAB PO SCH (15:20)
[2017-02-18 21:06] LABS: APTT (PATIENT) 46.1 SEC (24.3-30.1)
[2017-02-19] VITALS (16 sets, daily range): BP systolic 135–161; BP diastolic 84–101; PULSE 66–98; RESP 16–21; TEMP 98–98.2; O2SAT 93–99
[2017-02-19 03:27] LABS: AUTOMATED NEUTROPHIL # 1.7 TH/MM3 (1.8-7.7); EOSINOPHIL # 0.2 TH/MM3 (0-0.4); EOSINOPHIL % 3.7 % (0.0-4.0); HEMATOCRIT 33.9 % (39.0-51.0); HEMO FLAGS DIFF FINAL; LYMPH % 43.7 % (9.0-44.0); LYMPHOCYTE # 1.9 TH/MM3 (1.0-4.8); MEAN CELL VOLUME 71.2 FL (80.0-100.0); MEAN CORPUSCULAR HEMOGLOBIN 21.7 PG (27.0-34.0); MEAN CORPUSCULAR HGB CONC 30.5 % (32.0-36.0); NEUT % 40.6 % (16.0-70.0); PLATELET COUNT 136 TH/MM3 (150-450); RED BLOOD COUNT 4.76 MIL/MM3 (4.50-5.90); RED CELL DISTRIBUTION WIDTH 20.2 % (11.6-17.2); WHITE BLOOD COUNT 4.3 TH/MM3 (4.0-11.0)
[2017-02-19 03:36] LABS: APTT (PATIENT) 56.2 SEC (24.3-30.1)
[2017-02-19 03:44] LABS: ALT (GPT) 18 U/L (12-78); ANION GAP 5 MEQ/L (5-15); AST (GOT) 20 U/L (15-37); BICARBONATE 29.4 MEQ/L (21.0-32.0); BLOOD UREA NITROGEN 27 MG/DL (7-18); CHLORIDE 107 MEQ/L (98-107); GLOMERULAR FILTRATION RATE 66 ML/MIN (>89); SODIUM (NA) 141 MEQ/L (136-145)
[2017-02-19 03:47] LABS: ALKALINE PHOSPHATASE 68 U/L (45-117); TOTAL BILIRUBIN ADULT 0.3 MG/DL (0.2-1.0)
[2017-02-19] MEDS: RESP: IPRATROPIUM 0.5 MG/2.5 ML NEB NEB PRN (08:26)
[2017-02-19] MEDS: DOCUSATE SODIUM 50 MG/SENNA 8.6 MG TAB PO SCH (08:51)
[2017-02-19] MEDS: cloNIDine HCL 0.1 MG TAB PO PRN (08:51)
[2017-02-19] MEDS: LISINOPRIL 10 MG TAB PO SCH (08:51)
[2017-02-19] MEDS: FUROSEMIDE 20 MG TAB PO SCH (08:51)
[2017-02-19] MEDS: PANTOPRAZOLE SOD 40 MG DELAYED RELEASE TAB PO SCH (08:51)
[2017-02-19] MEDS: SODIUM CHLORIDE 0.9% FLUSH 10 ML FLUSH IV FLUSH SCH (09:00)
[2017-02-19] MEDS ORDERED: guaiFENesin E.R. 600 MG TAB PO SCH (09:15)
[2017-02-19] MEDS ORDERED: RESP: IPRATROPIUM 0.5 MG/2.5 ML NEB NEB ONE (10:00)
--- NOTE | 2017-02-19 10:52 | HHI.FPPN ---
Subjective Remarks No acute events overnight. Pt lying in bed this AM. Complains of productive cough of phlegm. No other complaints. Denies CP, SOB, abdominal pain, and N/V. Afebrile. VSS. Discussed with patient about smoking cessation and potential risks of continuing meth use. (Julia Medina MD R1) Objective Vitals Vital Signs Date Time Temp Pulse Resp B/P (MAP) Pulse Ox O2 Delivery O2 Flow Rate FiO2 02/19/17 10:00 80 02/19/17 09:50 135/87 (103) 02/19/17 09:00 94 02/19/17 08:27 95 21 02/19/17 08:00 98 02/19/17 07:30 98.0 93 18 161/101 (121) 93 02/19/17 07:30 92 02/19/17 06:00 84 02/19/17 05:00 76 02/19/17 04:00 76 02/19/17 03:15 75 16 142/84 (103) 98 02/19/17 03:00 68 02/19/17 02:00 70 02/19/17 01:00 66 02/19/17 00:00 78 02/18/17 23:28 98.0 86 18 133/73 (93) 98 02/18/17 23:00 87 02/18/17 22:00 74 02/18/17 21:00 82 02/18/17 20:00 70 02/18/17 20:00 97.7 77 18 127/70 (89) 98 02/18/17 19:00 78 02/18/17 18:00 84 02/18/17 17:20 97 21 02/18/17 17:00 86 02/18/17 16:00 84 02/18/17 15:00 85 02/18/17 15:00 97.6 86 17 153/80 (104) 97 02/18/17 14:00 79 02/18/17 13:00 75 02/18/17 12:35 86 02/18/17 12:35 87 16 148/87 (107) 98 I/O 02/18/17 02/18/17 02/18/17 02/19/17 02/19/17 02/19/17 07:00 15:00 23:00 07:00 15:00 23:00 Intake Total 240 ml 1111 ml 610 ml 20 ml Output Total 280 ml 500 ml Balance 240 ml 831 ml 110 ml 20 ml Intake Oral 240 ml 480 ml IV Total 1111 ml 130 ml 20 ml Output Urine Total 280 ml 300 ml Stool Total 200 ml (Julia Medina MD R1) Result Diagram: 02/19/1730902/19/17309 Objective Remarks GENERAL: disheveled, looks older than his stated age, in NAD SKIN: several excoriations on b/l arms HEAD: Atraumatic. Normocephalic. EYES: PERRLA, EOMI ENT: Very poor dentition, most of teeth are gone, 2 dental caries left, throat clear NECK: Trachea midline. No JVD or lymphadenopathy. No carotide bruits. CARDIOVASCULAR: Regular rate and rhythm without murmurs, gallops, or rubs. RESPIRATORY: Slight wheezes throughout GASTROINTESTINAL: Abdomen soft, non-tender, nondistended. No hepato-splenomegaly , or palpable masses. No guarding. + BS, colostomy bag in place. No hepatojugular reflex. MUSCULOSKELETAL: Extremities without clubbing, cyanosis, or edema. No joint tenderness, effusion, or edema noted. NEUROLOGICAL: Awake and alert. Oriented x3 (Julia Medina MD R1) A/P Assessment and Plan 61 yr old M with HTN, hep C untreated, hx of perforated colon s/p colostomy placement, tobaccoism and hx of crystal meth use presents with SOB. Admitted for CHF exacerbation and ACS r/o. Discharge Planning Anticipate discharge today Case management assisting with Life Vest (Julia Medina MD R1) Attending Attestation Medical rounds reguarding this patient performed with Dr Diana Medina this morning, detailed discussion relating to patients hospital course held, patient seen and examined, agree to documentation in this note, See Orders Patient stable for discharge and understands if lifestyle changes dont occur he will (Joe Wolfe MD) Problem List: (1) Congestive heart failure ICD Codes: I50.9 - Heart failure, unspecified Status: Acute Plan: s/p 40mg IV Furosemide in ED CXR revealed cardiomegaly with interstitial edema BNP 972 Troponin 0.10-->0.10-->0.11 EKG sinus rhythm, possible left ventricle hypertrophy, nonspecific T wave abnormality 2D echo demonstrated EF of 20% Cardiology consulted, recs appreciate Continue Lisinopril 10mg PO daily Lasix 20mg PO daily Life Vest ordered Cardiology signing off (2) Hx of hepatitis C ICD Codes: Z86.19 - Personal history of other infectious and parasitic diseases Status: Chronic Plan: Hx of Hep C, untreated LFTs wnl (3) HTN (hypertension) ICD Codes: I10 - Essential (primary) hypertension Status: Chronic Plan: Continue with Lisinopril 10mg PO daily Clonidine 0.1 mg PO PRN for SBP > 180, DBP>100 (4) Alcohol abuse ICD Codes: F10.10 - Alcohol abuse Status: Acute Plan: -CIWA protocol (5) Cough ICD Codes: R05 - Cough Plan: Associated with smoking Atrovent Neb 0.5mg Neb once Atovent inh ordered for discharge Mucinex 600mg PO BID (6) Tobacco abuse ICD Codes: Z72.0 - Tobacco use Plan: Counseled patient on smoking cessation (7) Nutrition, metabolism, and development symptoms ICD Codes: R63.8 - Other symptoms and signs concerning food and fluid intake Plan: Diet: Heart Healthy Fluids: None Electrolytes: monitor and replace as needed vitals q4h, monitor I & Os DVT ppx: heparin GTT GI ppx: protonix 40mg PO daily (Julia Medina MD R1) Problem Qualifiers (1) Congestive heart failure: Qualified Codes: I50.21 - Acute systolic (congestive) heart failure Julia Medina MD R1 Feb 19, 2017 10:52 Joe Wolfe MD Feb 20, 2017 10:53
[2017-02-19] MEDS ORDERED: IPRA17I INH (10:59)
[2017-02-19] MEDS ORDERED: FURO20TA PO (10:59)
--- NOTE | 2017-02-19 11:01 | HHI.DCPOC ---
Discharge Care Plan Diagnosis: (1) Hepatitis C (2) Hx of hepatitis C (3) Congestive heart failure (4) Nonischemic cardiomyopathy (5) HTN (hypertension) Goals to Promote Your Health * To prevent worsening of your condition and complications * To maintain your health at the optimal level Directions to Meet Your Goals Take your medications as prescribed Follow your dietary instruction Follow activity as directed Keep your appointments as scheduled Take your immunizations and boosters as scheduled If your symptoms worsen call your PCP, if no PCP go to Urgent Care Center or Emergency Room Smoking is Dangerous to Your Health. Avoid second hand smoke Call the 24-hour hour crisis hotline for domestic abuse at Julia Medina MD R1 Feb 19, 2017 11:01
--- NOTE | 2017-02-19 11:02 | HHI.DS ---
Discharge Summary Admission Date Feb 17, 2017 at 08:43 Discharge Date: Feb 19, 2017 Admitting Diagnosis non-STEMI, congestive heart failure (1) Congestive heart failure Diagnosis: Principal Plan: s/p 40mg IV Furosemide in ED CXR revealed cardiomegaly with interstitial edema BNP 972 Troponin 0.10-->0.10-->0.11 EKG sinus rhythm, possible left ventricle hypertrophy, nonspecific T wave abnormality 2D echo ordered with Doppler Cardiology consulted, recs appreciate Cont heparin drip Lexiscan today ICD Codes: I50.9 - Heart failure, unspecified Status: Acute (2) Non-STEMI (non-ST elevated myocardial infarction) Diagnosis: Principal Plan: trended troponins remain stable Telemetry monitoring See plan above ICD Codes: I21.4 - Non-ST elevation (NSTEMI) myocardial infarction Status: Acute (3) Hx of hepatitis C Diagnosis: Secondary Plan: Hx of Hep C, untreated LFTs wnl ICD Codes: Z86.19 - Personal history of other infectious and parasitic diseases Status: Chronic (4) HTN (hypertension) Diagnosis: Secondary Plan: Continue with Lisinopril 10mg PO daily Clonidine 0.1 mg PO PRN for SBP > 180, DBP>100 ICD Codes: I10 - Essential (primary) hypertension Status: Chronic (5) Alcohol abuse Diagnosis: Secondary Plan: -CIWA protocol ICD Codes: F10.10 - Alcohol abuse Status: Acute (6) Nutrition, metabolism, and development symptoms Diagnosis: Secondary Plan: Diet: Heart Healthy Fluids: None Electrolytes: monitor and replace as needed vitals q4h, monitor I & Os DVT ppx: heparin GTT GI ppx: protonix 40mg PO daily ICD Codes: R63.8 - Other symptoms and signs concerning food and fluid intake Consultants Cardiology Case Management Procedures Nuclear Stress Test 02/18 Brief History 61 yr old M with HTN, hep C untreated, hx of perforated colon s/p colostomy placement, tobaccoism and hx of crystal meth use presents to the ED with SOB. Accompanied by . Pt states that around 5am this morning, he woke up with severe cough. He felt congested and was trying to cough up phlegm. He started to gag and couldn't breath. He "felt as if he was gonna ." He began panicking and tried to calm himself down by taking deep breaths. Told him to immediately call 911. He was brought to the ED via ambulance. He endorses chronic chest pain, mid-sternum tightness. He reports that his chest pain was different during this episode. He denies orthopnea, SOB on exertion, sick contacts, fevers, chills, and night sweats. Reports that he used crystal meth 2 weeks ago. Also reports that he has used Percocet and Lortab in the past. CBC/BMP: 02/19/17 0310 02/19/17 0310 Significant Findings Laboratory Tests Test 02/17/17 06:45 02/17/17 13:40 02/17/17 15:58 02/17/17 21:45 Hemoglobin 10.2 GM/DL (13.0-17.0) Hematocrit 33.6 % (39.0-51.0) Mean Corpuscular Volume 72.1 FL (80.0-100.0) Mean Corpuscular Hemoglobin 21.9 PG (27.0-34.0) Mean Corpuscular Hemoglobin Concent 30.4 % (32.0-36.0) Red Cell Distribution Width 20.2 % (11.6-17.2) Platelet Count 120 TH/MM3 (150-450) Basophils (%) (Auto) 2.1 % (0.0-2.0) Blood Urea Nitrogen 33 MG/DL (7-18) Calcium Level 7.5 MG/DL (8.5-10.1) Chloride Level 112 MEQ/L (98-107) Estimat Glomerular Filtration Rate 60 ML/MIN (>89) Troponin I 0.10 NG/ML (0.02-0.05) 0.10 NG/ML (0.02-0.05) 0.11 NG/ML (0.02-0.05) Total Protein 6.3 GM/DL (6.4-8.2) Albumin 2.7 GM/DL (3.4-5.0) Activated Partial Thromboplast Time 43.4 SEC (24.3-30.1) 35.3 SEC (24.3-30.1) B-Type Natriuretic Peptide 972 PG/ML (0-100) Test 02/18/17 04:04 02/18/17 13:06 02/18/17 20:21 02/18/17 21:40 Hemoglobin 10.0 GM/DL (13.0-17.0) Hematocrit 33.1 % (39.0-51.0) Mean Corpuscular Volume 70.6 FL (80.0-100.0) Mean Corpuscular Hemoglobin 21.3 PG (27.0-34.0) Mean Corpuscular Hemoglobin Concent 30.2 % (32.0-36.0) Red Cell Distribution Width 20.3 % (11.6-17.2) Platelet Count 99 TH/MM3 (150-450) Monocytes (%) (Auto) 8.5 % (0.0-8.0) Platelet Estimate LOW (NORMAL) Platelet Morphology Comment CLUMPED (NORMAL) Activated Partial Thromboplast Time 47.1 SEC (24.3-30.1) 37.3 SEC (24.3-30.1) 46.1 SEC (24.3-30.1) Blood Urea Nitrogen 26 MG/DL (7-18) Calcium Level 8.1 MG/DL (8.5-10.1) Potassium Level 3.4 MEQ/L (3.5-5.1) Estimat Glomerular Filtration Rate 86 ML/MIN (>89) Urine Opiates Screen POS (NEG) Urine Amphetamines Screen POS (NEG) Test 02/19/17 03:10 Hemoglobin 10.3 GM/DL (13.0-17.0) Hematocrit 33.9 % (39.0-51.0) Mean Corpuscular Volume 71.2 FL (80.0-100.0) Mean Corpuscular Hemoglobin 21.7 PG (27.0-34.0) Mean Corpuscular Hemoglobin Concent 30.5 % (32.0-36.0) Red Cell Distribution Width 20.2 % (11.6-17.2) Platelet Count 136 TH/MM3 (150-450) Monocytes (%) (Auto) 11.0 % (0.0-8.0) Neutrophils # (Auto) 1.7 TH/MM3 (1.8-7.7) Activated Partial Thromboplast Time 56.2 SEC (24.3-30.1) Blood Urea Nitrogen 27 MG/DL (7-18) Albumin 2.7 GM/DL (3.4-5.0) Calcium Level 8.0 MG/DL (8.5-10.1) Estimat Glomerular Filtration Rate 66 ML/MIN (>89) Imaging Last Impressions Myocardial Perfusion Scan Nuc Med 02/18/17 0600 Signed Impressions: Service Date/Time: Saturday, February 18, 2017 10:50 - CONCLUSION: 1. Dilation of the ventricular cavity with severely depressed ejection fraction no definite reversible perfusion defect is identified. No reversible perfusion defect to indicate stress-induced myocardial ischemia is identified. Study would suggest a cardiomyopathy. RISK CATEGORY: High (>3%% Annual Mortality Rate) Ivan Gonzalez MD Chest X-Ray 02/17/17 0640 Signed Impressions: Service Date/Time: February 06:59 - CONCLUSION: Cardiomegaly with interstitial edema and probable CHF. Murray Pearson MD PE at Discharge GENERAL: disheveled, looks older than his stated age, in NAD SKIN: several excoriations on b/l arms HEAD: Atraumatic. Normocephalic. EYES: PERRLA, EOMI ENT: Very poor dentition, most of teeth are gone, 2 dental caries left, throat clear NECK: Trachea midline. No JVD or lymphadenopathy. No carotide bruits. CARDIOVASCULAR: Regular rate and rhythm without murmurs, gallops, or rubs. RESPIRATORY: Clear to auscultation. Breath sounds equal bilaterally. No wheezes , rales, or rhonchi. GASTROINTESTINAL: Abdomen soft, non-tender, nondistended. No hepato-splenomegaly , or palpable masses. No guarding. + BS, colostomy bag in place. No hepatojugular reflex. MUSCULOSKELETAL: Extremities without clubbing, cyanosis, or edema. No joint tenderness, effusion, or edema noted. NEUROLOGICAL: Awake and alert. Cranial nerves II through XII intact. Motor and sensory grossly within normal limits. Five out of 5 muscle strength in all muscle groups. Normal speech. Hospital Course Mr. Oden is a 61 yr old M with HTN, hep C untreated, hx of perforated colon s/ p colostomy placement, tobaccoism and hx of crystal meth use presented to ED with SOB. Admitted on 02/17 for acute systolic CHF exacerbation and NSTEMI r/o. UDS positive for opiates and amphetamines. CXR 02/17 demonstrated cardiomegaly with interstitial edema. Patient had elevated BNP of 972. 2D echo demonstrated EF of 20%. Patient had elevated troponin of 0.10, EXG revealed sinus rhythm. Cardiology consulted. Lexiscan performed on 02/18 revealed no reversible perfusion defect to indicate stress-induced myocardial ischemia. Patient started on lasix 20mg PO daily and life vest prescribed. Patient was cleared from cardiology standpoint. Patient determined stable for discharge on 02/19, to follow up outpatient with cardiology and PCP in 1 week. Pt Condition on Discharge: Stable Discharge Disposition: Discharge Home Discharge Instructions DIET: Follow Instructions for: Heart Healthy Diet Activities you can perform: Weight Bearing as Danyel Follow up Referrals: Cardiology - 1 Week PCP Follow-up - 1 Week New Medications: Defibrillator Jacket (Defibrillator Jacket) 1 Ea Device EA EXTERNAL ONCE for nonischemic cardiomyopathy, #1 3 Refills Energy = 150 Joules; VT Threshold = 150 BPM; VF Threshold = 200 BPM Use up to 90 days only Ipratropium HFA 12.9 GM Inh (Atrovent HFA 12.9 GM Inh) 17 Mcg/Actuation Aer 2 PUFF INH Q6HR PRN for SHORTNESS OF BREATH, #1 INHALER 0 Refills Furosemide (Furosemide) 20 Mg Tab 20 MG PO DAILY, #30 TAB Continued Medications: Lisinopril (Lisinopril) 10 Mg Tab 10 MG PO DAILY, #30 TAB 0 Refills Julia Medina MD R1 Feb 19, 2017 11:02
--- NOTE | 2017-02-19 12:10 | EKG ---
Date Performed: 02/17/2017 Time Performed: 19:08:13 PTAGE: 61 years EKG: Sinus rhythm LEFT VENTRICULAR HYPERTROPHY AND ST-T CHANGE ABNORMAL ECG PREVIOUS TRACING : 02/17/2017 13.35 DOCTOR: Leonora Sullivan Interpretating Date/Time 02/19/2017 12:08:01
--- NOTE | 2017-02-19 12:22 | EKG ---
Date Performed: 02/17/2017 Time Performed: 13:35:03 PTAGE: 61 years EKG: Sinus rhythm WITH SINUS ARRHYTHMIA POSSIBLE LEFT ATRIAL ENLARGEMENT POSSIBLE LEFT VENTRICULAR HYPERTROPHY NONSPEC IFIC T-WAVE ABNORMALITY ABNORMAL ECG PREVIOUS TRACING : 02/17/2017 06.49 DOCTOR: Leonora Sullivan Interpretating Date/Time 02/19/2017 12:20:22
[2017-02-21] MEDS ORDERED: THIAMINE HCL 100 MG TAB PO SCH (09:00)
== END 2017-02-19 13:45 | disposition home or self-care (01) | DRG 280 ==
LOC: NEPE 06:27 → NEDA 08:43 → NEDH 12:54 → HCPC 22:55
PROVIDERS: ADMIT Family Medicine; ATTEND Family Medicine
DX: I21.4 Non-ST elevation (NSTEMI) myocardial infarction (principal); I50.23 Acute on chronic systolic (congestive) heart failure; I42.9 Cardiomyopathy, unspecified; I11.0 Hypertensive heart disease with heart failure; R06.03 Acute respiratory distress; Z93.3 Colostomy status; B19.20 Unspecified viral hepatitis C without hepatic coma; F17.200 Nicotine dependence, unspecified, uncomplicated; F10.10 Alcohol abuse, uncomplicated; F15.90 Other stimulant use, unspecified, uncomplicated; R05 Cough
CPT/HCPCS: 71010; 78452; 80048; 80053; 80076; 80307; 83880; 84484; 85025; 85610; 85730; 93005; 93017; 93306; 94640; 94664; 96374; A9502; J1644; J1940; J2785; J3411; J7040; J7644

== ENCOUNTER 2017-02-28 02:12 | Inpatient (IN) | payer SELFPAY ==
[2017-02-28] VITALS (33 sets, daily range): BP systolic 128–212; BP diastolic 70–119; PULSE 72–119; RESP 16–22; TEMP 97.6–98.4; O2SAT 97–100
[~2017-02-28] VITALS: Ht 170.2 cm; Wt 60.5 kg
[~2017-02-28 02:12] MED LIST changes: +DEFIB EXTERNAL; +FURO20TA PO; +IPRA17I INH
[2017-02-28] MEDS ORDERED: NITROGLYCERIN-D5W 50 MG/250 ML 250 ML IV ONE (02:30)
[2017-02-28] MEDS ORDERED: ASPIRIN 81 MG CHEW TAB PO ONE (02:30)
[2017-02-28] MEDS ORDERED: FUROSEMIDE 20 MG/2 ML VIAL IV PUSH ONE (02:30)
[2017-02-28] MEDS ORDERED: SODIUM CHLORIDE 0.9% FLUSH 10 ML FLUSH IVF PRN (02:30)
[2017-02-28] MEDS ORDERED: NITROGLYCERIN 0.4 MG SL 25 TABS/BTL SL ONE (02:30)
--- NOTE | 2017-02-28 02:35 | PD ---
HPI Chief Complaint: Chest Pain Time Seen by Provider: 02:27 Travel History International Travel<30 days: No Contact w/Intl Traveler<30days: No Traveled to known affect area: No History of Present Illness HPI 59-year-old man, recent admission to the hospital for new diagnosis of nonischemic cardiomyopathy with an EF 15-20%, and STEMI with a peak troponin 0.1 , abnormal stress test, as well as history of perforated colon with colostomy placement, presenting back to the hospital worsening shortness of breath. He describes significant dyspnea on exertion and shortness of breath over the past week since discharge, worse tonight. Mild chest pain. States she was taking his Lasix up until today. History Past Medical History Narrative Medical Tobacco use, amphetamine use, alcohol use Nonischemic Cardiomyopathy, EF 15-20% Hepatitis C Hypertension History of perforated viscus with colostomy several years ago Tetanus Vaccination: Unknown Social History Alcohol Use: Yes Tobacco Use: Yes (1.5 ppd) Allergies-Medications (Allergen,Severity, Reaction): Coded Allergies: metoprolol (Unverified Allergy, Intermediate, CHEST PRESSURE, 11/20/16) Reported Meds & Prescriptions Reported Meds & Active Scripts Active Atrovent HFA 12.9 GM Inh (Ipratropium [place]) 17 Mcg/Actuation Aer 2 Puff INH Q6HR PRN Furosemide 20 Mg Tab 20 Mg PO DAILY Defibrillator Jacket (Device) 1 Ea Device Ea EXTERNAL ONCE Energy = 150 Joules; VT Threshold = 150 BPM; VF Threshold = 200 BPM Use up to 90 days only Reported Lisinopril 10 Mg Tab 10 Mg PO DAILY Review of Systems Except as stated in HPI: all other systems reviewed are Neg Physical Exam Narrative GENERAL: 61-year-old man, decreased muscle bulk, moderate respiratory distress SKIN: Focused skin assessment warm/dry. HEAD: Atraumatic. Normocephalic. EYES: Pupils equal and round. No scleral icterus. No injection or drainage. ENT: No nasal bleeding or discharge. Mucous membranes pink and moist. Temporal wasting. NECK: Trachea midline. No definite JVD. CARDIOVASCULAR: Regular rate and rhythm. No murmur appreciated. RESPIRATORY: Moderate risk for distress with tachypnea, increased accessory muscle use, coarse breath sounds of Rales in the bases. GASTROINTESTINAL: Abdomen soft, non-tender, nondistended. Hepatic and splenic margins not palpable. MUSCULOSKELETAL: No obvious deformities. No significant edema. NEUROLOGICAL: Awake and alert. No obvious cranial nerve deficits. Motor grossly within normal limits. Normal speech. PSYCHIATRIC: Appropriate mood and affect; insight and judgment normal. Data Data Last Documented VS Vital Signs Date Time Temp Pulse Resp B/P (MAP) Pulse Ox O2 Delivery O2 Flow Rate FiO2 02/28/17 05:05 95 16 148/82 (104) 100 Nasal Cannula 2.00 02/28/17 02:15 97.6 Orders Orders Electrocardiogram (02/28/17 02:28) B-Type Natriuretic Peptide (02/28/17 02:28) Ckmb (Isoenzyme) Profile (02/28/17 02:28) Complete Blood Count With Diff (02/28/17 02:28) Comprehensive Metabolic Panel (02/28/17 02:28) Magnesium (Mg) (02/28/17 02:28) Prothrombin Time / Inr (Pt) (02/28/17 02:28) Act Partial Throm Time (Ptt) (02/28/17 02:28) Troponin I (02/28/17 02:28) Chest, Single Ap (02/28/17 02:28) Ecg Monitoring (02/28/17 02:28) Iv Access Insert/Monitor (02/28/17 02:28) Oximetry (02/28/17 02:28) Oxygen Administration (02/28/17 02:28) Aspirin Chew (Aspirin Chew) (02/28/17 02:30) Nitroglycerin-D5w 50 Mg/250 Ml (Nitrogly (02/28/17 02:30) Sodium Chloride 0.9% Flush (Ns Flush) (02/28/17 02:30) Nitroglycerin Sl (Nitrostat Sl) (02/28/17 02:30) Furosemide Inj (Lasix Inj) (02/28/17 02:30) Drug Screen, Random Urine (02/28/17 02:28) Labs Laboratory Tests Test 02/28/17 02:39 White Blood Count 9.0 TH/MM3 Red Blood Count 5.02 MIL/MM3 Hemoglobin 10.5 GM/DL Hematocrit 35.1 % Mean Corpuscular Volume 69.8 FL Mean Corpuscular Hemoglobin 20.9 PG Mean Corpuscular Hemoglobin Concent 29.9 % Red Cell Distribution Width 20.3 % Platelet Count 146 TH/MM3 Mean Platelet Volume 8.8 FL Neutrophils (%) (Auto) 70.9 % Lymphocytes (%) (Auto) 18.4 % Monocytes (%) (Auto) 7.5 % Eosinophils (%) (Auto) 2.0 % Basophils (%) (Auto) 1.2 % Neutrophils # (Auto) 6.4 TH/MM3 Lymphocytes # (Auto) 1.6 TH/MM3 Monocytes # (Auto) 0.7 TH/MM3 Eosinophils # (Auto) 0.2 TH/MM3 Basophils # (Auto) 0.1 TH/MM3 CBC Comment DIFF FINAL Differential Comment Prothrombin Time 10.1 SEC Prothromb Time International Ratio 1.0 RATIO Activated Partial Thromboplast Time 27.2 SEC Blood Urea Nitrogen 25 MG/DL Creatinine 0.76 MG/DL Random Glucose 110 MG/DL Total Protein 7.2 GM/DL Albumin 3.2 GM/DL Calcium Level 8.0 MG/DL Magnesium Level 2.0 MG/DL Alkaline Phosphatase 98 U/L Aspartate Amino Transf (AST/SGOT) 26 U/L Alanine Aminotransferase (ALT/SGPT) 26 U/L Total Bilirubin 0.3 MG/DL Sodium Level 144 MEQ/L Potassium Level 3.5 MEQ/L Chloride Level 111 MEQ/L Carbon Dioxide Level 26.3 MEQ/L Anion Gap 7 MEQ/L Estimat Glomerular Filtration Rate 104 ML/MIN Total Creatine Kinase 50 U/L Troponin I 0.09 NG/ML B-Type Natriuretic Peptide 636 PG/ML Urine Opiates Screen NEG Urine Barbiturates Screen NEG Urine Amphetamines Screen NEG Urine Benzodiazepines Screen NEG Urine Cocaine Screen NEG Urine Cannabinoids Screen NEG [facility] Medical Decision Making Medical Screen Exam Complete: Yes Emergency Medical Condition: Yes Interpretation(s) My review of EKG: Sinus tachycardia rate 120, LVH with ST elevations across the anterior precordium with some depressions laterally and nonspecific changes inferiorly. Compared to previous EKG from February 17 there is no significant change. LABS: CBC remarkable for mild anemia. CMP generally unremarkable. Troponin negative. BNP 636 Coags unremarkable. Urine drug screen negative. Chest x-ray: Slight cardiomegaly. Differential Diagnosis CHF exacerbation, pulmonary edema, ACS, illicit drug use, other Narrative Course Medical decision making INITIAL: 61-year-old man, new diagnosis not significant adenopathy with severely depressed EF, presents worsening shortness of breath, Rales, suggestive of volume overload. States compliance with his Lasix. We'll check labs, x-ray, EKG, reassess. Diagnosis Primary Impression: CHF exacerbation Admitting Information Admitting Physician Requests: Observation Popeye Elder MD Feb 28, 2017 02:35
[2017-02-28 02:52] LABS: AUTOMATED NEUTROPHIL # 6.4 TH/MM3 (1.8-7.7); BASOPHIL # 0.1 TH/MM3 (0-0.2); BASOPHIL % 1.2 % (0.0-2.0); EOSINOPHIL # 0.2 TH/MM3 (0-0.4); HEMATOCRIT 35.1 % (39.0-51.0); HEMO FLAGS DIFF FINAL; LYMPH % 18.4 % (9.0-44.0); LYMPHOCYTE # 1.6 TH/MM3 (1.0-4.8); MEAN CELL VOLUME 69.8 FL (80.0-100.0); MEAN CORPUSCULAR HEMOGLOBIN 20.9 PG (27.0-34.0); MONO % 7.5 % (0.0-8.0); NEUT % 70.9 % (16.0-70.0); PLATELET COUNT 146 TH/MM3 (150-450); RED BLOOD COUNT 5.02 MIL/MM3 (4.50-5.90); RED CELL DISTRIBUTION WIDTH 20.3 % (11.6-17.2)
[2017-02-28 02:54] LABS: MEAN CORPUSCULAR HGB CONC 29.9 % (32.0-36.0)
[2017-02-28 03:03] LABS: APTT (PATIENT) 27.2 SEC (24.3-30.1); PROTHROMBIN TIME - PATIENT 10.1 SEC (9.8-11.6)
[2017-02-28 03:08] LABS: ALT (GPT) 26 U/L (12-78); ANION GAP 7 MEQ/L (5-15); AST (GOT) 26 U/L (15-37); BICARBONATE 26.3 MEQ/L (21.0-32.0); BLOOD UREA NITROGEN 25 MG/DL (7-18); CHLORIDE 111 MEQ/L (98-107); GLOMERULAR FILTRATION RATE 104 ML/MIN (>89); POTASSIUM 3.5 MEQ/L (3.5-5.1); SODIUM (NA) 144 MEQ/L (136-145)
[2017-02-28 03:12] LABS: ALKALINE PHOSPHATASE 98 U/L (45-117); TOTAL BILIRUBIN ADULT 0.3 MG/DL (0.2-1.0)
--- NOTE | 2017-02-28 03:12 | RADRPT ---
EXAM DATE/TIME: 02/28/2017 02:41 [facility] COMPARISON: CHEST SINGLE AP, February 17, 2017, 6:59. INDICATIONS : Chest pain and short of breath. MEDICAL HISTORY : Hepatitis C. Hypertension. Substance abuse. SURGICAL HISTORY : Colostomy. ENCOUNTER: Initial ACUITY: 1 day PAIN SCORE: 7/10 LOCATION: Left chest FINDINGS: Slight cardiomegaly seen. Previously seen pulmonary edema has resolved. CONCLUSION: Slight cardiomegaly. Denzel Lopez MD on February 28, 2017 at 3:10 Board Certified Radiologist. This report was verified electronically.
[2017-02-28 03:14] LABS: CREATINE KINASE 50 U/L (39-308)
--- NOTE | 2017-02-28 05:51 | HHI.HP ---
HPI Service [facility] Primary Care Physician No Primary Care Physician Admission Diagnosis Diagnoses: Travel History International Travel<30 Days: No Contact w/Intl Traveler <30 Da: No Traveled to Known Affected Are: No History of Present Illness 61-year-old male with past medical history for hepatitis C, opiate and methamphetamine abuse, hemachromatosis, hypertension and CHF with an EF of 20% on 02/18/17 presents to the emergency department with a 10 day history of paroxysmal nocturnal dyspnea. The patient initially endorses chest pain however states that it is when he lies down and tries to take a deep breath. He reports that the pressure has been present since his discharge from the hospital on 02/19. Stress test done during that admission showed no reversible perfusion defect. Troponin 0.10, at baseline. EKG showed sinus tachycardia with a pulse of 120, LVH and ST elevations in V2-V4, unchanged from previous. Patient was found to be hypertensive to 206/102 in the emergency department and a nitro drip was started. Review of Systems Denies fever or chills Denies blurry vision, otorrhea, rhinorrhea Denies sore throat and cough Positive chest pressure, shortness of breath No abdominal pain Denies constipation/diarrhea/nausea/vomiting Denies muscle pain/weakness No rashes Past Family Social History Past Medical History Hypertension Hepatitis C Hemochromatosis Polysubstance abuse Past Surgical History Sigmoid resection with colostomy for perforated diverticulum Reported Medications Reported Meds & Active Scripts Active Atrovent HFA 12.9 GM Inh (Ipratropium [place]) 17 Mcg/Actuation Aer 2 Puff INH Q6HR PRN Furosemide 20 Mg Tab 20 Mg PO DAILY Defibrillator Jacket (Device) 1 Ea Device Ea EXTERNAL ONCE Energy = 150 Joules; VT Threshold = 150 BPM; VF Threshold = 200 BPM Use up to 90 days only Reported Lisinopril 10 Mg Tab 10 Mg PO DAILY Allergies: Coded Allergies: metoprolol (Unverified Allergy, Intermediate, CHEST PRESSURE, 11/20/16) Family History Father with history of CAD, of [place] at age 52 Social History Smokes 1.5 packs per day 40 years. Significant history of alcohol abuse, crystal meth and opiate abuse. Physical Exam Vital Signs Vital Signs Date Time Temp Pulse Resp B/P (MAP) Pulse Ox O2 Delivery O2 Flow Rate FiO2 02/28/17 05:05 95 16 148/82 (104) 100 Nasal Cannula 2.00 02/28/17 04:45 97 19 153/83 (106) 99 Nasal Cannula 2.00 02/28/17 04:30 92 18 154/98 (116) 100 Nasal Cannula 2.00 02/28/17 04:13 98 18 152/96 (114) 98 Nasal Cannula 2.00 02/28/17 03:51 98 19 163/92 (115) 99 Nasal Cannula 2.00 02/28/17 03:30 96 19 159/88 (111) 99 Nasal Cannula 2.00 02/28/17 03:16 103 22 164/96 (118) 98 Nasal Cannula 2.00 02/28/17 03:09 110 20 156/98 (117) 97 Nasal Cannula 2.00 02/28/17 03:04 104 22 206/102 (136) 98 Nasal Cannula 2.00 02/28/17 03:01 22 02/28/17 02:54 114 22 192/110 (137) 98 Nasal Cannula 2.00 02/28/17 02:48 110 194/119 02/28/17 02:32 98 Nasal Cannula 2.00 02/28/17 02:32 22 98 Nasal Cannula 2.00 02/28/17 02:23 117 98 Nasal Cannula 2.00 02/28/17 02:15 97.6 119 22 212/119 (150) 98 Physical Exam GENERAL: Thin, male lying in bed SKIN: No rashes, ecchymoses or lesions. Cool and dry. HEAD: Atraumatic. Normocephalic. No temporal or scalp tenderness. EYES: Pupils equal round and reactive. Extraocular motions intact. No scleral icterus. No injection or drainage. ENT: Nose without bleeding, purulent drainage or septal hematoma. Throat without erythema, tonsillar hypertrophy or exudate. Uvula midline. Airway patent. NECK: Trachea midline. No JVD or lymphadenopathy. Supple, nontender, no meningeal signs. CARDIOVASCULAR: Tachycardic. No murmurs, gallops, or rubs. RESPIRATORY: Coarse breath sounds. No wheezes. GASTROINTESTINAL: Abdomen soft, non-tender, nondistended. No hepato-splenomegaly , or palpable masses. No guarding. MUSCULOSKELETAL: Extremities without clubbing, cyanosis, or edema. No joint tenderness, effusion, or edema noted. No calf tenderness. NEUROLOGICAL: Awake and alert. Cranial nerves II through XII intact. Motor and sensory grossly within normal limits. Normal speech. Laboratory Laboratory Tests Test 02/28/17 02:39 White Blood Count 9.0 Red Blood Count 5.02 Hemoglobin 10.5 Hematocrit 35.1 Mean Corpuscular Volume 69.8 Mean Corpuscular Hemoglobin 20.9 Mean Corpuscular Hemoglobin Concent 29.9 Red Cell Distribution Width 20.3 Platelet Count 146 Mean Platelet Volume 8.8 Neutrophils (%) (Auto) 70.9 Lymphocytes (%) (Auto) 18.4 Monocytes (%) (Auto) 7.5 Eosinophils (%) (Auto) 2.0 Basophils (%) (Auto) 1.2 Neutrophils # (Auto) 6.4 Lymphocytes # (Auto) 1.6 Monocytes # (Auto) 0.7 Eosinophils # (Auto) 0.2 Basophils # (Auto) 0.1 CBC Comment DIFF FINAL Differential Comment Prothrombin Time 10.1 Prothromb Time International Ratio 1.0 Activated Partial Thromboplast Time 27.2 Blood Urea Nitrogen 25 Creatinine 0.76 Random Glucose 110 Total Protein 7.2 Albumin 3.2 Calcium Level 8.0 Magnesium Level 2.0 Alkaline Phosphatase 98 Aspartate Amino Transf (AST/SGOT) 26 Alanine Aminotransferase (ALT/SGPT) 26 Total Bilirubin 0.3 Sodium Level 144 Potassium Level 3.5 Chloride Level 111 Carbon Dioxide Level 26.3 Anion Gap 7 Estimat Glomerular Filtration Rate 104 Total Creatine Kinase 50 Troponin I 0.09 B-Type Natriuretic Peptide 636 Urine Opiates Screen NEG Urine Barbiturates Screen NEG Urine Amphetamines Screen NEG Urine Benzodiazepines Screen NEG Urine Cocaine Screen NEG Urine Cannabinoids Screen NEG Result Diagram: 02/28/1723802/28/17238 Caprini VTE Risk Assessment Caprini VTE Risk Assessment: Mod/High Risk (score >= 2) Caprini Risk Assessment Model Point Value = 1 Point Value = 2 Point Value = 3 Point Value = 5 Age 41-60 Minor surgery BMI > 25 kg/m2 Swollen legs Varicose veins or History of unexplained or recurrent spontaneous Oral contraceptives or hormone replacement Sepsis (< 1 month) Serious lung disease, including pneumonia (< 1 month) Abnormal pulmonary function Acute myocardial infarction Congestive heart failure (< 1 month) History of inflammatory bowel disease Medical patient at bed rest Age 61-74 Arthroscopic surgery Major open surgery (> 45 min) Laparoscopic surgery (> 45 min) Malignancy Confined to bed (> 72 hours) Immobilizing plaster cast Central venous access Age >= 75 History of VTE Family history of VTE Factor V Leiden Prothrombin [id number] Lupus anticoagulant Anticardiolipin antibodies Elevated serum homocysteine Heparin-induced thrombocytopenia Other congenital or acquired thrombophilia Stroke (< 1 month) Elective arthroplasty Hip, pelvis, or leg fracture Acute spinal cord injury (< 1 month) Prophylaxis Regimen Total Risk Factor Score Risk Level Prophylaxis Regimen 0-1 Low Early ambulation 2 Moderate Order ONE of the following: *Sequential Compression Device (SCD) *Heparin 5000 units SQ BID 3-4 Higher Order ONE of the following medications: *Heparin 5000 units SQ TID *Enoxaparin/Lovenox 40 mg SQ daily (WT < 150 kg, CrCl > 30 mL/min) *Enoxaparin/Lovenox 30 mg SQ daily (WT < 150 kg, CrCl > 10-29 mL/min) *Enoxaparin/Lovenox 30 mg SQ BID (WT < 150 kg, CrCl > 30 mL/min) AND/OR *Sequential Compression Device (SCD) 5 or more Highest Order ONE of the following medications: *Heparin 5000 units SQ TID (Preferred with Epidurals) *Enoxaparin/Lovenox 40 mg SQ daily (WT < 150 kg, CrCl > 30 mL/min) *Enoxaparin/Lovenox 30 mg SQ daily (WT < 150 kg, CrCl > 10-29 mL/min) *Enoxaparin/Lovenox 30 mg SQ BID (WT < 150 kg, CrCl > 30 mL/min) AND *Sequential Compression Device (SCD) Assessment and Plan Assessment and Plan Assessment/plan: 1. Shortness of breath/CHF Chest x-ray shows resolution of pulmonary edema, images reviewed by tx ECHO showed EF of 20%, patient has been unable to obtain LifeVest Patient reports compliance with his home Lasix BNP 636, improved from previous admission s/p IV Lasix in ED Continue home Lasix CM consulted to assist with follow up and LifeVest 2. Hypertensive urgency Patient started on nitro drip in ED Wean drip as tolerated Continue home lisinopril Monitor BP 3. Elevated troponin Chronic, at baseline EKG with no significant changes, reviewed by me CP appears to be related to PND/SOB Patient will need cardiology f/u as outpatient 4. Alcohol and polysubstance abuse [facility] protocol FEN Heart healthy diet Electrolytes: monitor and replete prn Heparin Anticipate DC once Nitro ggt weaned Areli Chang MD Feb 28, 2017 05:51
[2017-02-28] MEDS ORDERED: ACETAMINOPHEN 325 MG TAB PO PRN (06:00)
[2017-02-28] MEDS ORDERED: BISACODYL 10 MG SUPP RECTAL PRN (06:00)
[2017-02-28] MEDS ORDERED: ONDANSETRON HCL 4 MG/2 ML VIAL IVP PRN (06:00)
[2017-02-28] MEDS ORDERED: SODIUM CHLORIDE 0.9% FLUSH 10 ML FLUSH IV FLUSH PRN (06:00)
[2017-02-28] MEDS ORDERED: MAGNESIUM HYDROXIDE SUSP 30 ML CUP PO PRN (06:00)
[2017-02-28] MEDS ORDERED: NALOXONE HCL 0.4 MG/ML AMP IV PUSH PRN (06:00)
[2017-02-28] MEDS ORDERED: SENNOSIDES 8.6 MG TAB PO PRN (06:00)
[2017-02-28] MEDS ORDERED: LACTULOSE SYRUP 20 GM/30 ML CUP PO PRN (06:00)
[2017-02-28] MEDS: HEPARIN SODIUM - SQ 10,000 UNITS/ML VIAL SQ SCH ×2 (06:12→17:06)
[2017-02-28] MEDS: SODIUM CHLORIDE 0.9% FLUSH 10 ML FLUSH IV FLUSH SCH ×2 (08:42→21:00)
[2017-02-28] MEDS: FUROSEMIDE 20 MG TAB PO SCH (08:43)
[2017-02-28] MEDS: DOCUSATE SODIUM 50 MG/SENNA 8.6 MG TAB PO SCH ×2 (08:43→21:00)
[2017-02-28] MEDS: LISINOPRIL 10 MG TAB PO SCH (08:43)
--- NOTE | 2017-02-28 08:48 | EKG ---
Date Performed: 02/28/2017 Time Performed: 02:22:42 PTAGE: 61 years EKG: SINUS TACHYCARDIA LEFT VENTRICULAR HYPERTROPHY AND ST-T CHANGE ABNORMAL ECG PREVIOUS TRACING : 02/17/2017 19.08 No significant change from previous tracing noted. DOCTOR: Enzo Moreland Interpretating Date/Time 02/28/2017 08:47:55
[2017-03-01] VITALS (8 sets, daily range): BP systolic 130–148; BP diastolic 80–81; PULSE 82–100; RESP 16–19; TEMP 97.7–98.1; O2SAT 98
[2017-03-01 04:54] LABS: AUTOMATED NEUTROPHIL # 3.9 TH/MM3 (1.8-7.7); BASOPHIL # 0.1 TH/MM3 (0-0.2); BASOPHIL % 1.2 % (0.0-2.0); EOSINOPHIL # 0.2 TH/MM3 (0-0.4); EOSINOPHIL % 2.5 % (0.0-4.0); HEMATOCRIT 31.6 % (39.0-51.0); LYMPH % 27.5 % (9.0-44.0); LYMPHOCYTE # 1.9 TH/MM3 (1.0-4.8); MEAN CELL VOLUME 69.2 FL (80.0-100.0); MEAN CORPUSCULAR HEMOGLOBIN 20.9 PG (27.0-34.0); MEAN CORPUSCULAR HGB CONC 30.1 % (32.0-36.0); MONO % 10.5 % (0.0-8.0); NEUT % 58.3 % (16.0-70.0); PLATELET COUNT 98 TH/MM3 (150-450); RED BLOOD COUNT 4.56 MIL/MM3 (4.50-5.90); WHITE BLOOD COUNT 6.8 TH/MM3 (4.0-11.0)
[2017-03-01 05:07] LABS: HEMO FLAGS AUTO DIFF
[2017-03-01 05:24] LABS: BICARBONATE 26.8 MEQ/L (21.0-32.0)
[2017-03-01 05:32] LABS: POTASSIUM 2.9 MEQ/L (3.5-5.1)
[2017-03-01 05:39] LABS: OVALOCYTES 1+ (NORMAL); PLATELET ESTIMATE SMEAR LOW (NORMAL); PLATELET MORPHOLOGY NORMAL (NORMAL); SCAN/DIFF AUTO DIFF CONFIRMED
[2017-03-01] MEDS: HEPARIN SODIUM - SQ 10,000 UNITS/ML VIAL SQ SCH (05:41)
[2017-03-01] MEDS ORDERED: POTASSIUM CHLOR 20 MEQ PREMIX 100 ML IV ONE (05:45)
[2017-03-01] MEDS ORDERED: POTASSIUM CHLORIDE 25 MEQ EFFERVESCENT TAB PO ONE (05:45)
[2017-03-01] MEDS ORDERED: NITROGLYCERIN-D5W 50 MG/250 ML 250 ML IV SCH (06:00)
--- NOTE | 2017-03-01 08:15 | HHI.PR ---
Subjective Remarks f/u; hypertensive urgency in no acute distress. sob is better. no chest pain. BP trend noted. still on Nitro drip. d/w the RN. Objective Vitals Vital Signs Date Time Temp Pulse Resp B/P (MAP) Pulse Ox O2 Delivery O2 Flow Rate FiO2 03/01/17 07:30 97.7 85 16 130/80 (97) 98 03/01/17 07:30 85 03/01/17 06:06 100 03/01/17 06:02 90 03/01/17 05:03 82 03/01/17 04:30 100 03/01/17 03:31 98.1 87 19 148/81 (103) 98 03/01/17 03:31 85 03/01/17 02:11 82 03/01/17 01:24 90 03/01/17 00:30 93 02/28/17 23:28 97.7 72 19 166/70 (102) 99 02/28/17 23:00 95 02/28/17 22:50 72 166/70 02/28/17 22:00 85 02/28/17 21:30 84 02/28/17 20:30 88 02/28/17 19:20 98.2 86 18 151/79 (103) 98 02/28/17 19:20 82 02/28/17 18:00 84 02/28/17 17:00 98 02/28/17 16:00 98.3 89 16 156/85 (108) 97 02/28/17 16:00 92 02/28/17 15:00 94 02/28/17 14:00 88 02/28/17 13:00 98 02/28/17 12:00 98.4 83 16 158/86 (110) 97 02/28/17 12:00 87 02/28/17 11:00 96 02/28/17 10:00 94 02/28/17 09:00 90 I/O 02/28/17 02/28/17 02/28/17 03/01/17 03/01/17 03/01/17 07:00 15:00 23:00 07:00 15:00 23:00 Intake Total 705 ml 640 ml Output Total 800 ml 1525 ml 340 ml Balance -800 ml -820 ml 300 ml Intake Oral 620 ml 640 ml IV Total 85 ml Output Urine Total 800 ml 1075 ml 340 ml Stool Total 450 ml # Voids 1 Result Diagram: 03/01/17 0355 03/01/17 0356 Imaging Last Impressions Chest X-Ray 02/28/17 0228 Signed Impressions: Service Date/Time: Tuesday, February 28, 2017 02:41 - CONCLUSION: Slight cardiomegaly. Denzel Lopez MD Objective Remarks GENERAL: This is a well-nourished, well-developed patient, in no apparent distress. CARDIOVASCULAR: Regular rate and regular rhythm without murmurs, gallops, or rubs. RESPIRATORY: Clear to auscultation. Breath sounds equal bilaterally. No wheezes , rales, or rhonchi. GASTROINTESTINAL: Abdomen soft, non-tender, nondistended. Normal, active bowel sounds- colostomy in place. MUSCULOSKELETAL: Extremities without clubbing, cyanosis, or edema. NEURO: Alert & Oriented x4 to person, place, time, situation. Moves all ext x4 Medications and IVs Inpatient Medications Acetaminophen (Tylenol) 650 mg Q4H PRN PO TEMP > 100.4; Start 02/28/17 at 06: 00 Aspirin (Aspirin Chew) 162 mg ONCE ONCE PO Last administered on 02/28/17 02: 49; Start 02/28/17 at 02:30; Stop 02/28/17 at 02:31; Status DC Bisacodyl (Dulcolax Supp) 10 mg DAILY PRN RECTAL SEVERE CONSITIPATION/ IF NPO; Start 02/28/17 at 06:00 Furosemide (Lasix Inj) 20 mg ONCE ONCE IV PUSH Last administered on 02:48; Start 02/28/17 at 02:30; Stop 02/28/17 at 02:31; Status DC Furosemide (Lasix) 20 mg DAILY PO Last administered on 02/28/17 08:43; Start 02/28/17 at 09:00 Heparin Sodium (Porcine) (Heparin Inj) 5,000 units Q12H SQ Last administered on 03/01/17 05:41; Start 02/28/17 at 06:00 Influenza Virus Vaccine (Flu (Quadrivalent) Vaccine Inj) 0.5 ml ONCE ONCE IM ; Start 03/01/17 at 09:00; Stop 03/01/17 at 09:01 Lactulose (Lactulose Liq) 30 ml DAILY PRN PO SEVERE CONSITIPATION/ IF PO; Start 02/28/17 at 06:00 Lisinopril (Prinivil) 10 mg DAILY PO Last administered on 02/28/17 08:43; Start 02/28/17 at 09:00 Magnesium Hydroxide (Milk Of Magnesia Liq) 30 ml Q12H PRN PO Mild constipation ; Start 02/28/17 at 06:00 Naloxone HCl (Narcan Inj) 0.4 mg UNSCH PRN IV PUSH SEE LABEL COMMENTS; Start 02/28/17 at 06:00 Nitroglycerin (Nitrostat Sl) 0.4 mg ONCE ONCE SL Last administered on 02:49; Start 02/28/17 at 02:30; Stop 02/28/17 at 02:31; Status DC Nitroglycerin/ Dextrose 250 ml @ 1.5 mls/hr TITRATE IV Last administered on 06:02; Start 03/01/17 at 06:00; Stop 03/07/17 at 01:09 Ondansetron HCl (Zofran Inj) 4 mg Q6H PRN IVP NAUSEA OR VOMITING; Start at 06:00 Potassium Bicarb/ Potassium Chloride (K-Lyte Cl Eff) 50 meq ONCE ONCE PO Last administered on 03/01/17 05:59; Start 03/01/17 at 05:45; Stop 03/01/17 at 05:49; Status DC Potassium Chloride 100 ml @ 50 mls/hr ONCE ONCE IV Last administered on 03/01 06:15; Start 03/01/17 at 05:45; Stop 03/01/17 at 07:44; Status DC Senna/Docusate Sodium (Danielle-Colace) 1 tab BID PO ; Start 02/28/17 at 09:00 Sennosides (Senokot) 17.2 mg Q12H PRN PO Moderate constipation; Start at 06:00 Sodium Chloride (NS Flush) 2 ml BID IV FLUSH Last administered on 02/28/17 08 :42; Start 02/28/17 at 09:00 A/P Assessment and Plan A/P 1. Shortness of breath/CHF- better today. ECHO showed EF of 20%, patient has been unable to obtain LifeVest Patient reports compliance with his home Lasix BNP 636, improved from previous admission s/p IV Lasix in ED Continue home Lasix CM consulted to assist with follow up and LifeVest 2. Hypertensive urgency Patient still on nitro drip. Wean drip as tolerated Continue home lisinopril Monitor BP 3. Elevated troponin Chronic, at baseline EKG with no significant changes CP appears to be related to PND/SOB Patient will need cardiology f/u as outpatient of note had a recent stress test with no reversible ischemia and evaluated by cardiology. 4. Alcohol and polysubstance abuse [facility] protocol 5. chronic smoker; counselled on smoking cessation. 6. hypokalemia; will replace and monitor. DVT prophylaxis with subq Heparin Anette Calvo MD Mar 01, 2017 08:15
[2017-03-01] MEDS: FUROSEMIDE 20 MG TAB PO SCH (08:29)
[2017-03-01] MEDS: LISINOPRIL 10 MG TAB PO SCH (08:31)
[2017-03-01] MEDS: DOCUSATE SODIUM 50 MG/SENNA 8.6 MG TAB PO SCH (08:34)
[2017-03-01] MEDS ORDERED: INFLUENZA VIRUS VACCINE (QUADRIVALENT) 0.5 ML SYR IM ONE (09:00)
[2017-03-01] MEDS ORDERED: IPRA17I INH (09:37)
[2017-03-01] MEDS ORDERED: POTA20TA5 PO (09:37)
[2017-03-01] MEDS ORDERED: LISI10TA3 PO (09:37)
[2017-03-01] MEDS ORDERED: FURO20TA PO (09:37)
[2017-03-01] MEDS ORDERED: POTASSIUM CHLORIDE 20 MEQ CONTROLLED RELEASE TAB PO ONE (14:00)
[2017-03-02] MEDS ORDERED: POTASSIUM CHLORIDE 20 MEQ CONTROLLED RELEASE TAB PO SCH (09:00)
== END 2017-03-01 10:05 | disposition left against medical advice (07) | DRG 304 ==
LOC: NEPE 02:12 → NEDA 05:32 → HCIS 07:44 → OBSVTOIN 08:36 → HCPC 16:55
PROVIDERS: ADMIT Internal Medicine; ATTEND Internal Medicine
DX: I16.0 Hypertensive urgency (principal); I50.23 Acute on chronic systolic (congestive) heart failure; I42.9 Cardiomyopathy, unspecified; I11.0 Hypertensive heart disease with heart failure; R00.0 Tachycardia, unspecified; D64.9 Anemia, unspecified; E83.119 Hemochromatosis, unspecified; E87.6 Hypokalemia; I25.2 Old myocardial infarction; I50.9 Heart failure, unspecified; R74.8 Abnormal levels of other serum enzymes; F10.10 Alcohol abuse, uncomplicated; F11.10 Opioid abuse, uncomplicated; F15.10 Other stimulant abuse, uncomplicated; F17.210 Nicotine dependence, cigarettes, uncomplicated; Z86.19 Personal history of other infectious and parasitic diseases; Z93.3 Colostomy status
CPT/HCPCS: 71010; 80048; 80053; 80307; 82550; 83735; 83880; 84484; 85025; 85610; 85730; 93005; 96374; J1644; J1940; J3480

== ENCOUNTER 2017-03-28 22:10 | Inpatient (IN) | payer SELFPAY ==
[2017-03-28] MEDS: NITROGLYCERIN 2% OINT 1 GM PACKET TOP (22:30)
[2017-03-28] MEDS: ASPIRIN 81 MG CHEW TAB PO (22:30)
[2017-03-28] MEDS ORDERED: SODIUM CHLORIDE 0.9% FLUSH 10 ML FLUSH IVF (22:30)
[2017-03-28] MEDS: NITROGLYCERIN 0.4 MG SL 25 TABS/BTL SL (22:39)
[2017-03-28 23:08] LABS: AUTOMATED NEUTROPHIL # 4.5 TH/MM3 (1.8-7.7); BASOPHIL # 0.1 TH/MM3 (0-0.2); BASOPHIL % 0.7 % (0.0-2.0); EOSINOPHIL # 0.2 TH/MM3 (0-0.4); HEMATOCRIT 36.1 % (39.0-51.0); HEMOGLOBIN 10.8 GM/DL (13.0-17.0); LYMPH % 29.3 % (9.0-44.0); LYMPHOCYTE # 2.2 TH/MM3 (1.0-4.8); MEAN CELL VOLUME 69.5 FL (80.0-100.0); MEAN CORPUSCULAR HEMOGLOBIN 20.8 PG (27.0-34.0); MEAN PLATELET VOLUME 8.9 FL (7.0-11.0); MONO % 9.4 % (0.0-8.0); MONOCYTE # 0.7 TH/MM3 (0-0.9); NEUT % 58.6 % (16.0-70.0); PLATELET COUNT 162 TH/MM3 (150-450); RED BLOOD COUNT 5.19 MIL/MM3 (4.50-5.90); RED CELL DISTRIBUTION WIDTH 20.3 % (11.6-17.2); WHITE BLOOD COUNT 7.7 TH/MM3 (4.0-11.0)
[2017-03-28 23:09] LABS: APTT (PATIENT) 24.1 SEC (24.3-30.1); INTERNATIONAL NORMALIZED RATIO 1.2 RATIO; PROTHROMBIN TIME - PATIENT 11.8 SEC (9.8-11.6)
[2017-03-28 23:18] LABS: ANION GAP 7 MEQ/L (5-15); BICARBONATE 26.4 MEQ/L (21.0-32.0); BLOOD UREA NITROGEN 24 MG/DL (7-18); CALCIUM 8.2 MG/DL (8.5-10.1); CHLORIDE 107 MEQ/L (98-107); CREATINE KINASE 173 U/L (39-308); CREATININE 1.11 MG/DL (0.60-1.30); GLOMERULAR FILTRATION RATE 67 ML/MIN (>89); GLUCOSE,RANDOM 106 MG/DL (74-106); MAGNESIUM 2.1 MG/DL (1.5-2.5); SODIUM (NA) 140 MEQ/L (136-145)
[2017-03-28 23:20] LABS: POTASSIUM 5.6 MEQ/L (3.5-5.1)
[2017-03-28 23:23] LABS: HEMO FLAGS AUTO DIFF
[2017-03-28 23:25] LABS: PLATELET ESTIMATE SMEAR NORMAL (NORMAL); PLATELET MORPHOLOGY ENLARGED (NORMAL); SCAN/DIFF AUTO DIFF CONFIRMED
[2017-03-28 23:27] LABS: ACANTHOCYTES OCC (NORMAL); KERATOCYTES OCC (NORMAL)
[2017-03-28 23:32] LABS: CKMB 1.8 NG/ML (0.5-3.6)
[2017-03-29 00:02] LABS: AMPHETAMINE, URINE POS (NEG); BARBITURATES, URINE NEG (NEG); BENZODIAZEPINE,URINE NEG (NEG); CANNABINOIDS, URINE NEG (NEG); COCAINE, URINE NEG (NEG)
[2017-03-29] MEDS: niCARdipine INJ 25 MG in SODIUM CHLOR 0.9% 250 ML INJ 240 ML IV ×4 (00:39→03:41)
[2017-03-29] MEDS ORDERED: SODIUM CHLORIDE 0.9% FLUSH 10 ML FLUSH IV FLUSH (01:30)
[2017-03-29] MEDS ORDERED: NALOXONE HCL 0.4 MG/ML AMP IV PUSH (01:30)
[2017-03-29] MEDS ORDERED: CHLORHEXIDINE GLUCONATE 2 % 1 PACK (2 CLOTHS)(extra cloths) TOPICAL (03:15)
[2017-03-29] MEDS: CHLORHEXIDINE GLUCONATE 2 % 1 PACK (2 CLOTHS)(taper/protocol) TOPICAL (04:00)
[2017-03-29] MEDS ORDERED: FLUMAZENIL 0.5 MG/5 ML VIAL IV PUSH (04:30)
[2017-03-29] MEDS ORDERED: LORazepam 2 MG TAB PO (04:30)
[2017-03-29] MEDS ORDERED: LORazepam 2 MG/ML VIAL IV PUSH ×3 (04:30)
[2017-03-29 04:45] LABS: MRSA PCR SURVEILLANCE MRSA NOT DETECTED (NOT DETECT)
[2017-03-29 07:08] LABS: AUTOMATED NEUTROPHIL # 3.2 TH/MM3 (1.8-7.7); BASOPHIL # 0.1 TH/MM3 (0-0.2); BASOPHIL % 1.3 % (0.0-2.0); EOSINOPHIL # 0.2 TH/MM3 (0-0.4); EOSINOPHIL % 3.3 % (0.0-4.0); HEMATOCRIT 33.5 % (39.0-51.0); HEMOGLOBIN 10.3 GM/DL (13.0-17.0); LYMPH % 33.7 % (9.0-44.0); LYMPHOCYTE # 2.1 TH/MM3 (1.0-4.8); MEAN CELL VOLUME 69.3 FL (80.0-100.0); MEAN CORPUSCULAR HEMOGLOBIN 21.3 PG (27.0-34.0); MEAN CORPUSCULAR HGB CONC 30.8 % (32.0-36.0); MEAN PLATELET VOLUME 8.6 FL (7.0-11.0); MONO % 11.2 % (0.0-8.0); MONOCYTE # 0.7 TH/MM3 (0-0.9); NEUT % 50.5 % (16.0-70.0); PLATELET COUNT 109 TH/MM3 (150-450); RED BLOOD COUNT 4.83 MIL/MM3 (4.50-5.90); RED CELL DISTRIBUTION WIDTH 20.5 % (11.6-17.2); WHITE BLOOD COUNT 6.3 TH/MM3 (4.0-11.0)
[2017-03-29 07:20] LABS: HEMO FLAGS AUTO DIFF
[2017-03-29 07:45] LABS: ANION GAP 9 MEQ/L (5-15); BICARBONATE 29.3 MEQ/L (21.0-32.0); BLOOD UREA NITROGEN 20 MG/DL (7-18); CALCIUM 8.3 MG/DL (8.5-10.1); CHLORIDE 104 MEQ/L (98-107); GLOMERULAR FILTRATION RATE 76 ML/MIN (>89); GLUCOSE,RANDOM 105 MG/DL (74-106); SODIUM (NA) 142 MEQ/L (136-145)
[2017-03-29 07:46] LABS: CREATINE KINASE 61 U/L (39-308)
[2017-03-29 07:48] LABS: POTASSIUM 2.9 MEQ/L (3.5-5.1)
[2017-03-29 08:24] LABS: OVALOCYTES 1+ (NORMAL)
[2017-03-29 08:25] LABS: PLATELET ESTIMATE SMEAR LOW (NORMAL); PLATELET MORPHOLOGY NORMAL (NORMAL); SCAN/DIFF AUTO DIFF CONFIRMED
[2017-03-29] MEDS: LISINOPRIL 10 MG TAB PO (08:54)
[2017-03-29] MEDS: FUROSEMIDE 20 MG TAB PO (08:54)
[2017-03-29] MEDS: POTASSIUM CHLOR 20 MEQ PREMIX 100 ML IV (08:55)
[2017-03-29] MEDS: SODIUM CHLORIDE 0.9% FLUSH 10 ML FLUSH IV FLUSH ×2 (08:55→19:52)
[2017-03-29 08:59] LABS: B-TYPE NATRIURETIC PEPTIDE 1269 PG/ML (0-100)
[2017-03-29] MEDS: CARVEDILOL 3.125 MG TAB PO ×2 (11:47→19:52)
[2017-03-29 12:22] LABS: TROPONIN I 0.09 NG/ML (0.02-0.05)
[2017-03-29 12:23] LABS: CREATINE KINASE 57 U/L (39-308)
[2017-03-29] MEDS: ACETAMINOPHEN 325 MG TAB PO (12:25)
[2017-03-29 16:18] LABS: ANION GAP 7 MEQ/L (5-15); BICARBONATE 28.3 MEQ/L (21.0-32.0); BLOOD UREA NITROGEN 18 MG/DL (7-18); CALCIUM 8.4 MG/DL (8.5-10.1); CHLORIDE 106 MEQ/L (98-107); CREATININE 0.86 MG/DL (0.60-1.30); GLOMERULAR FILTRATION RATE 90 ML/MIN (>89); GLUCOSE,RANDOM 104 MG/DL (74-106); POTASSIUM 3.2 MEQ/L (3.5-5.1); SODIUM (NA) 141 MEQ/L (136-145)
[2017-03-29] MEDS: POTASSIUM CHLORIDE 10 MEQ CONTROLLED RELEASE TAB PO (17:49)
[2017-03-29] MEDS: IBUPROFEN 400 MG TAB PO (17:50)
[2017-03-29] MEDS: LORazepam 2 MG/ML VIAL IV PUSH (21:03)
[2017-03-30] MEDS: CHLORHEXIDINE GLUCONATE 2 % 1 PACK (2 CLOTHS)(taper/protocol) TOPICAL (04:00)
[2017-03-30] MEDS: LORazepam 2 MG/ML VIAL IV PUSH (05:00)
[2017-03-30 06:17] LABS: BASOPHIL # 0.1 TH/MM3 (0-0.2); EOSINOPHIL # 0.2 TH/MM3 (0-0.4); EOSINOPHIL % 3.6 % (0.0-4.0); HEMOGLOBIN 10.6 GM/DL (13.0-17.0); LYMPH % 34.8 % (9.0-44.0); MEAN CELL VOLUME 69.1 FL (80.0-100.0); MEAN CORPUSCULAR HEMOGLOBIN 20.9 PG (27.0-34.0); MEAN CORPUSCULAR HGB CONC 30.3 % (32.0-36.0); MEAN PLATELET VOLUME 8.9 FL (7.0-11.0); MONO % 8.5 % (0.0-8.0); MONOCYTE # 0.5 TH/MM3 (0-0.9); NEUT % 52.1 % (16.0-70.0); PLATELET COUNT 140 TH/MM3 (150-450); RED BLOOD COUNT 5.06 MIL/MM3 (4.50-5.90); WHITE BLOOD COUNT 5.8 TH/MM3 (4.0-11.0)
[2017-03-30 06:20] LABS: ANION GAP 7 MEQ/L (5-15); BICARBONATE 26.6 MEQ/L (21.0-32.0); BLOOD UREA NITROGEN 26 MG/DL (7-18); CALCIUM 8.5 MG/DL (8.5-10.1); CHLORIDE 107 MEQ/L (98-107); CREATININE 1.37 MG/DL (0.60-1.30); GLOMERULAR FILTRATION RATE 53 ML/MIN (>89); GLUCOSE,RANDOM 103 MG/DL (74-106); MAGNESIUM 2.3 MG/DL (1.5-2.5); POTASSIUM 4.2 MEQ/L (3.5-5.1); SODIUM (NA) 141 MEQ/L (136-145)
[2017-03-30 06:24] LABS: HEMO FLAGS AUTO DIFF
[2017-03-30] MEDS: FUROSEMIDE 20 MG TAB PO (07:37)
[2017-03-30] MEDS: LISINOPRIL 10 MG TAB PO (07:37)
[2017-03-30] MEDS: CARVEDILOL 3.125 MG TAB PO (07:37)
[2017-03-30] MEDS: SODIUM CHLORIDE 0.9% FLUSH 10 ML FLUSH IV FLUSH (07:37)
[2017-03-30] MEDS: INFLUENZA VIRUS VACCINE (QUADRIVALENT) 0.5 ML SYR IM (07:39)
[2017-03-30] MEDS: PNEUMOCOCCAL POLYVALENT INJ 25 MCG/0.5 ML SYR IM (07:40)
[2017-03-30 08:52] LABS: PLATELET ESTIMATE SMEAR LOW (NORMAL); PLATELET MORPHOLOGY NORMAL (NORMAL); SCAN/DIFF AUTO DIFF CONFIRMED
[2017-03-30] MEDS: POTASSIUM CHLORIDE 10 MEQ CONTROLLED RELEASE TAB PO (09:12)
[2017-03-30] MEDS: HEPARIN SODIUM - SQ 10,000 UNITS/ML VIAL SQ (09:12)
[2017-03-30] MEDS: LORazepam 1 MG TAB PO (12:08)
== END 2017-03-30 13:37 | disposition left against medical advice (07) | DRG 304 ==
LOC: NEPE 22:10 → HCPC 03-30 10:26 → NEDA 03-29 00:53 → HIME 03-29 02:45
DX: I16.1 Hypertensive emergency (principal); I50.23 Acute on chronic systolic (congestive) heart failure; I42.9 Cardiomyopathy, unspecified; I11.0 Hypertensive heart disease with heart failure; F15.10 Other stimulant abuse, uncomplicated; F17.210 Nicotine dependence, cigarettes, uncomplicated; I25.10 Atherosclerotic heart disease of native coronary artery without angina pectoris; B19.20 Unspecified viral hepatitis C without hepatic coma; R00.0 Tachycardia, unspecified; F10.10 Alcohol abuse, uncomplicated; Z23 Encounter for immunization; Z93.3 Colostomy status
CPT/HCPCS: 71045; 80048; 80307; 82550; 82552; 83735; 83880; 84484; 85025; 85610; 85730; 87641; 90471; 90472; 90686; 90732; 93005; 99291